=== PATIENT | female | born 1995 | race Caucasian/White ===

== ENCOUNTER 2017-11-02 09:49 | Day surgery (SDC) | payer OTHER ==
[2017-10-28 12:30] VITALS: BMI 29.2
[~2017-11-02 09:49] MED LIST: LIDOCAINE 1% 20 ML VIAL (10MG/ML) FOR IV START INTRADERMA PRN
[2017-11-02 10:04] VITALS: TEMP 97.5
[2017-11-02] MEDS ORDERED: ONDANSETRON 4 MG/2 ML VIAL IVP STA (10:25)
[2017-11-02] MEDS: LACTATED RINGERS 1,000 ML IV SCH ×2 (10:26→10:52)
[2017-11-02] MEDS ORDERED: PROPOFOL 10 MG/ML 20 ML VIAL IV ONE (10:55)
[2017-11-02] MEDS ORDERED: LIDOCAINE 1% INJ 10MG/ML (20 ML MDV) ONE (10:55)
--- NOTE | 2017-11-02 10:57 | P.GSHP ---
History of Present Illness H&P Date: 11/02/17 Chief Complaint: GERD, GI bleed Is a 22-year-old female referred from Dr. Schmidt patient safer EGD colonoscopy. She's had issues with GERD and GI bleed. Past Medical History Past Medical History: Fibromyalgia, GERD/Reflux, Neurologic Disorder Additional Past Medical History / Comment(s): MIGRAINES, IBS, HIATAL HERNIA., SCLEROSIS RT SI JOINT History of Any Multi-Drug Resistant Organisms: None Reported Past Surgical History: Section, Cholecystectomy Additional Past Surgical History / Comment(s): COLONOSCOPY, EGD Past Anesthesia/Blood Transfusion Reactions: Motion Sickness Smoking Status: Current every day smoker - Past Family History Mother Family Medical History: Deep Vein Thrombosis (DVT) Medications and Allergies Home Medications Medication Instructions Recorded Confirmed Type DULoxetine HCL [Cymbalta] 60 mg PO DAILY 10/28/17 11/02/17 History Ibuprofen [Motrin] 800 mg PO DAILY PRN 10/28/17 11/02/17 History Omeprazole [PriLOSEC] 20 mg PO DAILY PRN 10/28/17 11/02/17 History Allergies Allergy/AdvReac Type Severity Reaction Status Date / Time Penicillins Allergy Abdominal Verified 11/02/17 10:04 Pain, Diarrhea, Nausea Surgical - Exam Vital Signs Temp Pulse Resp BP Pulse Ox 97.5 F L 78 16 129/82 98 11/02/17 10:02 11/02/17 10:02 11/02/17 10:02 11/02/17 10:02 11/02/17 10:02 - General well developed, no distress - Eyes PERRL - ENT normal pinna - Neck no masses - Respiratory normal expansion - Cardiovascular Rhythm: regular - Abdomen Abdomen: soft, non tender Assessment and Plan Assessment: GERD, GI bleed. We'll perform EGD and colonoscopy.
--- NOTE | 2017-11-02 11:19 | P.OP ---
Date of Procedure: 11/02/17 Preoperative Diagnosis: GERD GI bleed Postoperative Diagnosis: Mild antral gastritis Minimal hiatal hernia Mild esophagitis Normal colonoscopy Procedure(s) Performed: EGD Colonoscopy Anesthesia: MAC Surgeon: Faheem Murphy Pathology: other (Antrum, esophagus) Condition: stable Disposition: PACU Description of Procedure: The patient's placed on the endoscopy table in the lateral position. She received IV sedation. The gastroscope some placed oropharynx and passed in the esophagus and into the stomach. The scope was then placed through the pylorus. The first and second portion of the duodenum appeared normal. Scope was then brought back the antrum and this was mildly inflamed. A biopsies was performed. The scope was then retroflexed and the remainder of the stomach appeared normal. There was a minimal hiatal hernia. The GE junction was at 39 cm. The distal esophagus appeared minimally inflamed a biopsies performed. The proximal esophagus appeared normal. Scope was withdrawn for patient. Next digital rectal exam was performed which revealed a few internal hemorrhoids. The flexible colonoscope was then placed patient anus passed throughout the entire colon. The ileocecal valve was visualized. The cecum, ascending and transverse colon appeared normal. The scope was then brought back and the descending and sigmoid colon was normal. Scope was then brought back the rectum and this was normal. The scope was withdrawn from the patient. There was no blood seen in the colon.
[2017-11-02 11:49] VITALS: BP 111/72; PULSE 65; RESP 18
== END 2017-11-02 12:00 | disposition home or self-care (01) ==
LOC: ORWHC2ENDO 09:49
PROVIDERS: ATTEND Surgery
DX: K29.50 Unspecified chronic gastritis without bleeding (principal); K21.0 Gastro-esophageal reflux disease with esophagitis; K44.9 Diaphragmatic hernia without obstruction or gangrene; K58.9 Irritable bowel syndrome, unspecified; F17.210 Nicotine dependence, cigarettes, uncomplicated; F41.9 Anxiety disorder, unspecified; F32.9 Major depressive disorder, single episode, unspecified; M79.7 Fibromyalgia; Z79.899 Other long term (current) drug therapy; Z88.0 Allergy status to penicillin
CPT/HCPCS: 81025; 88305; 88342; 45378; 43239; J2405; J2001; J2704

== ENCOUNTER 2018-03-20 03:15 | Emergency (ER) | payer OTHER ==
[2018-03-20 03:21] VITALS: BP 130/91; PULSE 91; RESP 20; TEMP 98.2
[2018-03-20] MEDS ORDERED: LORazepam 1 MG TAB PO STA (04:02)
--- NOTE | 2018-03-20 04:05 | ED ---
Arrhythmia/Palpitations HPI - General Chief Complaint: Arrhythmia/Palpitations Stated Complaint: palpitations Time Seen by Provider: 03/20/18 03:49 Source: patient, RN notes reviewed Mode of arrival: ambulatory Limitations: no limitations - History of Present Illness Initial Comments: This is a 22-year-old female who presents to the emergency department with chief complaint of palpitations. Patient states that for the past one day she has been experiencing intermittent episodes of repeated "hard" heartbeats. Patient states that when this happens she feels lightheaded like she is going to pass out. She states that these heart palpitations are frequent, occurring multiple times per hour. Patient states that 7 weeks ago she was started on Lamictal for bipolar disorder. She states that palpitations is a side effect of this medication, however has not experienced this in the past. Patient also states she has a history of anxiety, but does not take anything for anxiety and states that with previous episodes of anxiety she has not had palpitations. Patient denies any fevers or chills, chest pain or shortness of breath, abdominal pain, vomiting, diarrhea or constipation. She does admit to associated nausea during her episodes. - Related Data Home Medications Medication Instructions Recorded Confirmed DULoxetine HCL [Cymbalta] 60 mg PO DAILY 10/28/17 03/20/18 Ibuprofen [Motrin] 800 mg PO DAILY PRN 10/28/17 03/20/18 lamoTRIgine [LaMICtal] 100 mg PO DAILY 03/20/18 03/20/18 Allergies Allergy/AdvReac Type Severity Reaction Status Date / Time Penicillins Allergy Abdominal Verified 03/20/18 03:21 Pain, Diarrhea, Nausea Review of Systems ROS Statement: Those systems with pertinent positive or pertinent negative responses have been documented in the HPI. ROS Other: All systems not noted in ROS Statement are negative. Past Medical History Past Medical History: Fibromyalgia, GERD/Reflux, Neurologic Disorder Additional Past Medical History / Comment(s): MIGRAINES, IBS, HIATAL HERNIA., SCLEROSIS RT SI JOINT History of Any Multi-Drug Resistant Organisms: None Reported Past Surgical History: Section, Cholecystectomy Additional Past Surgical History / Comment(s): COLONOSCOPY, EGD Past Anesthesia/Blood Transfusion Reactions: Motion Sickness Past Psychological History: Anxiety, Bipolar, Depression Smoking Status: Current every day smoker Past Alcohol Use History: None Reported Past Drug Use History: None Reported - Past Family History Mother Family Medical History: Deep Vein Thrombosis (DVT) General Exam - General Exam Comments Initial Comments: General: Awake and alert, well-developed; in no apparent distress. HEENT: Head atraumatic, normocephalic. Pupils are equal, round and reactive to light. Extraocular movements intact. Oropharynx moist without erythema. Neck: Supple. Normal ROM. Cardiovascular: Regular rate and rhythm. No murmurs, rubs or gallops. Chest symmetrical. Respiratory: Lungs clear to auscultation bilaterally. No wheezes, rales or rhonchi. Normal respiratory effort with no use of accessory muscles. Abdomen: Soft, non-tender, non-distended. No rigidity, rebound or guarding. Normal bowel sounds in all 4 quadrants. Musculoskeletal: Normal ROM, no tenderness bilateral upper and lower extremities. Ambulating normally. Skin: Omega, warm and dry without rashes or lesions. Neurological: Alert and oriented x3. CN II-XII grossly intact. Speech is fluent and answers are appropriate. No focal neuro deficits. Limitations: no limitations Course Vital Signs 03/20/18 03:17 Temperature 98.2 F Pulse Rate 91 Respiratory 20 Rate Blood Pressure 130/91 O2 Sat by Pulse 100 Oximetry EKG Findings - EKG Comments: EKG Findings:: 3:33:45. Normal sinus rhythm. Ventricular rate 82 bpm, ND interval 130, QRS duration 96, QT/QTC 374/436. Medical Decision Making - Medical Decision Making This is a 22-year-old female who presented to the emergency department for evaluation of heart palpitations 1 day. Patient described palpitations as intermittent with rapid, repeated "hard" heartbeats with associated nausea and lightheadedness. EKG revealed normal sinus rhythm. Chest x-ray was negative for any acute abnormalities. CBC, CMP, coags were unremarkable. D-dimer and troponin were negative. Urine drug screen was negative for any illicit drug use. Patient's vital signs are stable and she is in no acute distress. I'm suspicious that patient's recently prescribed Lamictal may be causing her palpitations as a side effect. Recommended following up with her psychiatrist and family care physician. Patient will be discharged home at this time. She is in agreement and voices understanding. All questions answered. - Lab Data Result diagrams: 03/20/18 04:10 03/20/18 04:10 Lab Results 03/20/18 03/20/18 03/20/18 Range/Units 04:10 04:10 04:10 WBC 9.1 (3.8-10.6) k/uL RBC 4.55 (3.80-5.40) m/uL Hgb 12.8 (11.4-16.0) gm/dL Hct 39.2 (34.0-46.0) % MCV 86.1 (80.0-100.0) fL MCH 28.2 (25.0-35.0) pg MCHC 32.8 (31.0-37.0) g/dL RDW 14.0 (11.5-15.5) % Plt Count 297 (150-450) k/uL Neutrophils % 59 % Lymphocytes % 30 % Monocytes % 5 % Eosinophils % 4 % Basophils % 0 % Neutrophils # 5.4 (1.3-7.7) k/uL Lymphocytes # 2.7 (1.0-4.8) k/uL Monocytes # 0.5 (0-1.0) k/uL Eosinophils # 0.4 (0-0.7) k/uL Basophils # 0.0 (0-0.2) k/uL PT 9.7 (9.0-12.0) sec INR 1.0 (<1.2) APTT 24.8 (22.0-30.0) sec D-Dimer 0.36 (<0.60) mg/L FEU Sodium 140 (137-145) mmol/L Potassium 4.4 (3.5-5.1) mmol/L Chloride 103 (98-107) mmol/L Carbon Dioxide 25 (22-30) mmol/L Anion Gap 12 mmol/L BUN 13 (7-17) mg/dL Creatinine 0.60 (0.52-1.04) mg/dL Est GFR (CKD-EPI)AfAm >90 (>60 ml/min/1.73 sqM) Est GFR (CKD-EPI)NonAf >90 (>60 ml/min/1.73 sqM) Glucose 90 (74-99) mg/dL Calcium 9.7 (8.4-10.2) mg/dL Magnesium 1.8 (1.6-2.3) mg/dL Total Bilirubin <0.1 L (0.2-1.3) mg/dL AST 22 (14-36) U/L ALT 33 (9-52) U/L Alkaline Phosphatase 58 (38-126) U/L Troponin I (0.000-0.034) ng/mL Total Protein 6.6 (6.3-8.2) g/dL Albumin 4.0 (3.5-5.0) g/dL Urine Opiates Screen (NotDetected) Ur Oxycodone Screen (NotDetected) Urine Methadone Screen (NotDetected) Ur Propoxyphene Screen (NotDetected) Ur Barbiturates Screen (NotDetected) U Tricyclic Antidepress (NotDetected) Ur Phencyclidine Scrn (NotDetected) Ur Amphetamines Screen (NotDetected) U Methamphetamines Scrn (NotDetected) U Benzodiazepines Scrn (NotDetected) Urine Cocaine Screen (NotDetected) U Marijuana (THC) Screen (NotDetected) 03/20/18 03/20/18 Range/Units 04:10 04:10 WBC (3.8-10.6) k/uL RBC (3.80-5.40) m/uL Hgb (11.4-16.0) gm/dL Hct (34.0-46.0) % MCV (80.0-100.0) fL MCH (25.0-35.0) pg MCHC (31.0-37.0) g/dL RDW (11.5-15.5) % Plt Count (150-450) k/uL Neutrophils % % Lymphocytes % % Monocytes % % Eosinophils % % Basophils % % Neutrophils # (1.3-7.7) k/uL Lymphocytes # (1.0-4.8) k/uL Monocytes # (0-1.0) k/uL Eosinophils # (0-0.7) k/uL Basophils # (0-0.2) k/uL PT (9.0-12.0) sec INR (<1.2) APTT (22.0-30.0) sec D-Dimer (<0.60) mg/L FEU Sodium (137-145) mmol/L Potassium (3.5-5.1) mmol/L Chloride (98-107) mmol/L Carbon Dioxide (22-30) mmol/L Anion Gap mmol/L BUN (7-17) mg/dL Creatinine (0.52-1.04) mg/dL Est GFR (CKD-EPI)AfAm (>60 ml/min/1.73 sqM) Est GFR (CKD-EPI)NonAf (>60 ml/min/1.73 sqM) Glucose (74-99) mg/dL Calcium (8.4-10.2) mg/dL Magnesium (1.6-2.3) mg/dL Total Bilirubin (0.2-1.3) mg/dL AST (14-36) U/L ALT (9-52) U/L Alkaline Phosphatase (38-126) U/L Troponin I <0.012 (0.000-0.034) ng/mL Total Protein (6.3-8.2) g/dL Albumin (3.5-5.0) g/dL Urine Opiates Screen Not Detected (NotDetected) Ur Oxycodone Screen Not Detected (NotDetected) Urine Methadone Screen Not Detected (NotDetected) Ur Propoxyphene Screen Not Detected (NotDetected) Ur Barbiturates Screen Not Detected (NotDetected) U Tricyclic Antidepress Not Detected (NotDetected) Ur Phencyclidine Scrn Not Detected (NotDetected) Ur Amphetamines Screen Not Detected (NotDetected) U Methamphetamines Scrn Not Detected (NotDetected) U Benzodiazepines Scrn Not Detected (NotDetected) Urine Cocaine Screen Not Detected (NotDetected) U Marijuana (THC) Screen Not Detected (NotDetected) - Radiology Data Radiology results: report reviewed, image reviewed Chest x-ray impression: Normal chest x-ray. As read by Dr. Louis Disposition Clinical Impression: Palpitations Disposition: HOME SELF-CARE Condition: Good Instructions: Palpitations (ED) Additional Instructions: Please follow-up with your psychiatrist to discuss possible side effects of Lamictal. Please follow up with primary care provider within 1-2 days. Return to emergency department if symptoms should worsen or any concerns arise. Is patient prescribed a controlled substance at d/c from ED?: No Referrals: Lincoln Schmidt DO [Primary Care Provider] - 1-2 days Time of Disposition: 04:56
[2018-03-20 04:24] LABS: Basophils % (A) 0 %; Eosinophils # (A) 0.4 k/uL (0-0.7); Eosinophils % (A) 4 %; HCT 39.2 % (34.0-46.0); HGB 12.8 gm/dL (11.4-16.0); Lymphocytes # (A) 2.7 k/uL (1.0-4.8); Lymphocytes % (A) 30 %; MCH 28.2 pg (25.0-35.0); MCHC 32.8 g/dL (31.0-37.0); MCV 86.1 fL (80.0-100.0); Mean Platelet Volume 6.6; Monocytes # (A) 0.5 k/uL (0-1.0); Monocytes % (A) 5 %; Neutrophils # (A) 5.4 k/uL (1.3-7.7); Neutrophils % (A) 59 %; Platelet Count 297 k/uL (150-450); RBC 4.55 m/uL (3.80-5.40); WBC 9.1 k/uL (3.8-10.6)
--- NOTE | 2018-03-20 04:31 | XR ---
EXAM: XR Chest, 2 Views CLINICAL HISTORY: ITS.REASON XR Reason: palpitations TECHNIQUE: Frontal and lateral views of the chest. COMPARISON: No relevant prior studies available. FINDINGS: Lungs: Unremarkable. No consolidation. Pleural space: Unremarkable. No pneumothorax. Heart: Unremarkable. No cardiomegaly. Mediastinum: Unremarkable. Bones/joints: Unremarkable. IMPRESSION: Normal chest x-rays.
[2018-03-20 04:32] LABS: ALT 33 U/L (9-52); AST 22 U/L (14-36); Alkaline Phosphatase 58 U/L (38-126); Anion Gap 12 mmol/L; Blood Urea Nitrogen 13 mg/dL (7-17); Calcium 9.7 mg/dL (8.4-10.2); Carbon Dioxide 25 mmol/L (22-30); Chloride 103 mmol/L (98-107); Glucose 90 mg/dL (74-99); Magnesium 1.8 mg/dL (1.6-2.3); Potassium 4.4 mmol/L (3.5-5.1); Sodium 140 mmol/L (137-145); Total Bilirubin <0.1 mg/dL (0.2-1.3); Total Protein 6.6 g/dL (6.3-8.2)
[2018-03-20 04:40] LABS: D-Dimer 0.36 mg/L FEU (<0.60); Partial Thromboplastin Time 24.8 sec (22.0-30.0); Prothrombin Time 9.7 sec (9.0-12.0)
[2018-03-20 04:48] LABS: Amphetamine Screen,Urine Not Detected (NotDetected); Barbiturate Screen,Urine Not Detected (NotDetected); Benzodiazepines Screen,Urine Not Detected (NotDetected); Cocaine Screen,Urine Not Detected (NotDetected); Methadone Screen, Urine Not Detected (NotDetected); Opiate Screen,Urine Not Detected (NotDetected); Oxycodone Screen, Urine Not Detected (NotDetected); Phencyclidine Screen,Urine Not Detected (NotDetected); Tricyclic Antidepressant,Urine Not Detected (NotDetected); Urn Cannabinoid Scrn Not Detected (NotDetected)
== END 2018-03-20 05:11 | disposition home or self-care (01) ==
LOC: EC 03:15
DX: R00.2 Palpitations (principal); R42 Dizziness and giddiness; R11.0 Nausea; F31.9 Bipolar disorder, unspecified; F41.9 Anxiety disorder, unspecified; F17.200 Nicotine dependence, unspecified, uncomplicated; Z79.899 Other long term (current) drug therapy; Z88.0 Allergy status to penicillin
CPT/HCPCS: 36415; 71046; 80053; 80306; 83735; 84443; 84484; 85025; 85379; 85610; 85730; 93005; 99285

== ENCOUNTER 2018-05-11 11:56 | Day surgery (SDC) | payer OTHER ==
[~2018-05-11 11:56] MED LIST changes: +LACTATED RINGERS 1,000 ML IV SCH
[2018-05-11 12:23] VITALS: TEMP 98.3
[2018-05-11] MEDS ORDERED: PROPOFOL 10 MG/ML 20 ML VIAL IV ONE (13:15)
--- NOTE | 2018-05-11 13:21 | P.GSHP ---
History of Present Illness H&P Date: 05/11/18 Chief Complaint: GI bleed This is a 22-year-old female who presents today for colonoscopy. She's had issues with rectal bleeding. Past Medical History Past Medical History: Fibromyalgia, GERD/Reflux, Neurologic Disorder Additional Past Medical History / Comment(s): ABD PAIN, MIGRAINES, IBS, HIATAL HERNIA, SCLEROSIS RT SI JOINT, HX HEMMOROIDS, History of Any Multi-Drug Resistant Organisms: None Reported Past Surgical History: Section, Cholecystectomy Additional Past Surgical History / Comment(s): COLONOSCOPY, EGD Past Anesthesia/Blood Transfusion Reactions: Motion Sickness Smoking Status: Current every day smoker - Past Family History Mother Family Medical History: Deep Vein Thrombosis (DVT) Medications and Allergies Home Medications Medication Instructions Recorded Confirmed Type DULoxetine HCL [Cymbalta] 60 mg PO BID 10/28/17 05/11/18 History Ibuprofen [Motrin] 800 mg PO DAILY PRN 10/28/17 05/11/18 History lamoTRIgine [LaMICtal] 100 mg PO DAILY 03/20/18 05/11/18 History Allergies Allergy/AdvReac Type Severity Reaction Status Date / Time Penicillins Allergy Abdominal Verified 05/11/18 12:06 Pain, Diarrhea, Nausea Surgical - Exam Vital Signs Temp Pulse Resp BP Pulse Ox 98.3 F 80 14 125/78 97 05/11/18 12:21 05/11/18 12:21 05/11/18 12:21 05/11/18 12:21 05/11/18 12:21 - General well developed, no distress - Eyes PERRL - ENT normal pinna - Neck no masses - Respiratory normal expansion - Cardiovascular Rhythm: regular - Abdomen Abdomen: soft, non tender Assessment and Plan Assessment: GI bleed. We'll perform colonoscopy.
--- NOTE | 2018-05-11 13:34 | P.OP ---
Date of Procedure: 05/11/18 Preoperative Diagnosis: GI bleed Postoperative Diagnosis: Mild internal hemorrhoids Procedure(s) Performed: Colonoscopy Anesthesia: MAC Surgeon: Faheem Murphy Pathology: none sent Condition: stable Disposition: PACU Description of Procedure: Patient's placed on the endoscopy table in the lateral position. She received IV sedation. Digital rectal exam is performed which revealed a few mild internal hemorrhoids. Flexible colonoscope was then placed patient anus passed rotator colon. Ileocecal valve sutures. The cecum, ascending and transverse colon appeared normal. The descending and sigmoid colon appeared normal. Scope was then brought back into the rectum and this appeared normal. Scope was withdrawn through the anus there is mild internal hemorrhoids. The scope was withdrawn for patient.
[2018-05-11 13:38] VITALS: RESP 16
[2018-05-11 14:01] VITALS: BP 106/64; PULSE 76
--- NOTE | 2018-05-13 11:28 | CDI ---
Outpatient Documentation Clarification Form Date: 05/13/18 CDS/Industrial Custodian Name: Bre Omer Phone: If any questions, call [facility] [employer] at [phone] Patient Name: Errol Xavier Admit Date: 05/11/18 Discharge Date: 05/11/18 ATTENTION: The [facility] Coding Staff appreciate your assistance in clarifying documentation. Please respond to the clarification below the line at the bottom and electronically sign. The [facility] Coding staff will review the response and follow-up if needed. Please note: Queries are made part of the Legal Health Record. If you have any questions, please contact the Online Retailer. Dear Dr. Murphy, What is the source of the GI bleed? Multiple coding resources, that we are required to follow, state that the physician should identify a source and the tank filler may not assume. Thank you for your kind consideration. MTDD
== END 2018-05-11 14:13 | disposition home or self-care (01) ==
LOC: ORWHC2ENDO 11:56
PROVIDERS: ATTEND Surgery
DX: K92.2 Gastrointestinal hemorrhage, unspecified (principal); K64.8 Other hemorrhoids; M79.7 Fibromyalgia; K21.9 Gastro-esophageal reflux disease without esophagitis; G43.909 Migraine, unspecified, not intractable, without status migrainosus; K58.9 Irritable bowel syndrome, unspecified; F17.200 Nicotine dependence, unspecified, uncomplicated; Z90.49 Acquired absence of other specified parts of digestive tract; Z79.899 Other long term (current) drug therapy; Z88.0 Allergy status to penicillin
CPT/HCPCS: 81025; 45378; J2704

== ENCOUNTER 2021-08-28 10:01 | Day surgery (SDC) | payer OTHER ==
[2021-08-27 08:48] VITALS: BMI 39.1
[~2021-08-28 10:01] MED LIST changes: -LACTATED RINGERS 1,000 ML IV SCH; +LIDOCAINE 1% (10MG/ML) FOR IV START INTRADERMA PRN; -LIDOCAINE 1% 20 ML VIAL (10MG/ML) FOR IV START INTRADERMA PRN
[2021-08-28 11:29] VITALS: TEMP 98.2
[2021-08-28] MEDS ORDERED: LACTATED RINGERS 1,000 ML IV ONE (11:29)
[2021-08-28] MEDS ORDERED: LIDOCAINE 1% INJ 10MG/ML (20 ML MDV) ONE (13:12)
[2021-08-28] MEDS ORDERED: PROPOFOL 10 MG/ML 20 ML VIAL IV ONE (13:12)
--- NOTE | 2021-08-28 13:18 | P.GSHP ---
History of Present Illness H&P Date: 08/28/21 Chief Complaint: GERD, GI bleed Is a 25-year-old female who presents today for EGD and colonoscopy. She has issues with GERD and GI bleed. Past Medical History Past Medical History: Fibromyalgia, GERD/Reflux, Neurologic Disorder Additional Past Medical History / Comment(s): ABD PAIN, MIGRAINES, IBS, HIATAL HERNIA, SCLEROSIS RT SI JOINT, HX HEMORRHOIDS, ON FLAGYL FOR BACTERIAL VAGINITIS, FOOD GETTING STUCK, ABD PAIN, BLOATING AND DIARRHEA History of Any Multi-Drug Resistant Organisms: None Reported Past Surgical History: Section, Cholecystectomy Additional Past Surgical History / Comment(s): COLONOSCOPY, EGD, COLPOSCOPY Past Anesthesia/Blood Transfusion Reactions: Motion Sickness Smoking Status: Former smoker - Past Family History Mother Family Medical History: Deep Vein Thrombosis (DVT) Medications and Allergies Home Medications Medication Instructions Recorded Confirmed Type Venlafaxine HCl [Effexor] 37.5 mg PO DAILY 08/27/21 08/27/21 History metroNIDAZOLE [Flagyl] 500 mg PO BID 08/27/21 08/27/21 History traZODone HCL 150 mg PO HS 08/27/21 08/27/21 History Allergies Allergy/AdvReac Type Severity Reaction Status Date / Time Penicillins Allergy Abdominal Verified 08/28/21 11:19 Pain, Diarrhea, Nausea Surgical - Exam Vital Signs Temp Pulse Resp BP Pulse Ox 98.2 F 81 16 113/59 97 08/28/21 11:26 08/28/21 11:26 08/28/21 11:26 08/28/21 11:26 08/28/21 11:26 - General well developed, well nourished, no distress - Eyes PERRL - ENT normal pinna - Neck no masses - Respiratory normal expansion - Cardiovascular Rhythm: regular - Abdomen Abdomen: soft, non tender Assessment and Plan Assessment: GERD, GI bleed. We'll perform EGD and colonoscopy
--- NOTE | 2021-08-28 13:36 | P.OP ---
Date of Procedure: 08/28/21 Preoperative Diagnosis: GERD GI bleed Postoperative Diagnosis: Antral gastritis Normal colon Procedure(s) Performed: EGD Colonoscopy Anesthesia: MAC Surgeon: Faheem Murphy Pathology: other (Antrum) Condition: stable Disposition: PACU Description of Procedure: The patient's placed on the endoscopy table in the lateral position. She received IV sedation. The gastroscope placed oropharynx passed in the esophagus into the stomach. Scope was then placed through the pylorus. The first and second portion of the duodenum appeared normal. Scope was then brought back and the antrum this appeared mildly inflamed. A biopsies performed. The scope was unretroflexed and remainder of the stomach appeared normal. The GE junction was at 47 is. The distal esophagus. Minimal inflamed. This was biopsied. The proximal esophagus appeared normal. Scope was withdrawn for patient. Next digital rectal exam was performed which revealed no ebonized. The flexible colonoscope was then placed patient anus passed throughout the entire colon. The ileocecal valve was visualized. The cecum, ascending and transverse colon appeared normal. The descending and sigmoid colon appeared normal. Scope was then brought back the rectum this appeared normal. Scope withdrawn for patient. There is no evidence of any GI bleed. It is thought the patient may have had some anal trauma which caused her GI bleed.
[2021-08-28 13:58] VITALS: RESP 16
[2021-08-28 14:19] VITALS: BP 121/80; PULSE 79
== END 2021-08-28 14:36 | disposition home or self-care (01) ==
LOC: ORWHC2ENDO 10:01
PROVIDERS: ATTEND Surgery
DX: K29.50 Unspecified chronic gastritis without bleeding (principal); K21.9 Gastro-esophageal reflux disease without esophagitis; K92.2 Gastrointestinal hemorrhage, unspecified; M79.7 Fibromyalgia; R29.90 Unspecified symptoms and signs involving the nervous system; K58.9 Irritable bowel syndrome, unspecified; N76.0 Acute vaginitis; Z98.891 History of uterine scar from previous surgery; Z90.49 Acquired absence of other specified parts of digestive tract; Z98.890 Other specified postprocedural states; Z87.891 Personal history of nicotine dependence; Z82.49 Family history of ischemic heart disease and other diseases of the circulatory system; Z79.899 Other long term (current) drug therapy; Z88.0 Allergy status to penicillin
CPT/HCPCS: 81025; 88305; 45378; 43239; J2001; J2704

== ENCOUNTER → 2022-03-16 | Outpatient (CLI) | payer OTHER ==
--- NOTE | 2022-03-16 13:02 | FL ---
EXAMINATION TYPE: FL UGI air w esophagus DATE OF EXAM: 03/16/2022 CLINICAL INDICATION: 26-year-old female K21.0, GERD with esophagitis. COMPARISON: None Total Fluoroscopy Time: 2 minutes 52 images obtained. FINDINGS: The swallowing mechanism is normal and hypopharyngeal anatomy is preserved. The cervical and thoracic portions have a normal course and caliber and normal motility. The mucosa is normal and no persistent filling defect is encountered. There is a small sliding hiatal hernia. When the patient is in the right decubitus position, multiple episodes of severe gastroesophageal reflux up to the thoracic inlet are easily elicited with Valsalv a maneuver. The stomach and duodenum are free of any persistent filling defect and demonstrate a normal mucosal p attern. IMPRESSION: 1. Small sliding hiatal hernia. 2. When the patient is in the right decubitus position, multiple episodes of severe gastroesophageal reflux up to the thoracic inlet are easily elicited with Valsalva maneuver. 3. Otherwise, unremarkable esophagram and upper GI examination.
== END | disposition home or self-care (01) ==
LOC: RADUSWWP 08:28
PROVIDERS: ATTEND Surgery
DX: K44.9 Diaphragmatic hernia without obstruction or gangrene (principal); K21.00 Gastro-esophageal reflux disease with esophagitis, without bleeding
CPT/HCPCS: 74246

== ENCOUNTER → 2022-03-21 | Outpatient (CLI) | payer OTHER ==
[2022-03-21 16:09] LABS: Basophils # (A) 0.03 X 10*3/uL (0.00-0.10); Basophils % (A) 0.4 %; Eosinophils # (A) 0.19 X 10*3/uL (0.04-0.35); Eosinophils % (A) 2.6 %; HCT 41.9 % (37.2-46.3); Immature Grans, Automated 0.1 %; Lymphocytes # (A) 2.26 X 10*3/uL (0.90-5.00); Lymphocytes % (A) 30.7 %; MCH 26.9 pg (27.0-32.0); MCV 86.7 fL (80.0-97.0); Mean Platelet Volume 10.8 fL (9.5-12.2); Monocytes # (A) 0.49 X 10*3/uL (0.20-1.00); Monocytes % (A) 6.7 %; NRBC Per 100 WBC 0 /100 WBCS (0.0-0.0); Neutrophils # (A) 4.37 X 10*3/uL (1.80-7.70); Neutrophils % (A) 59.5 %; Platelet Count 336 X 10*3/uL (140-440); RBC 4.83 X 10*6/uL (4.10-5.20); RDW 13.9 % (11.5-14.5); WBC 7.35 X 10*3/uL (4.50-10.00)
== END | disposition home or self-care (01) ==
LOC: LABPAT 11:41
PROVIDERS: ATTEND Surgery
DX: Z01.812 Encounter for preprocedural laboratory examination (principal); K21.00 Gastro-esophageal reflux disease with esophagitis, without bleeding
CPT/HCPCS: 85025

== ENCOUNTER 2022-03-24 07:21 | Observation (INO) | payer OTHER ==
[~2022-03-24 07:21] MED LIST changes: +ACETAMINOPHEN TAB 500 MG TAB PO PRN; +DEXAMETHASONE SOD PHOSPHATE 4 MG/ML 1 ML VIAL IV ONE; +HEPARIN SODIUM,PORCINE/PF 5,000 UNIT/0.5 ML SYRINGE SQ PRN; +MIDAZOLAM 2 MG/2 ML VIAL IV PRN; +ONDANSETRON 4 MG/2 ML VIAL IVP ONE
--- NOTE | 2022-03-24 08:36 | P.GSHP ---
History of Present Illness H&P Date: 03/24/22 Chief Complaint: GERD This is a 26-year-old female who has a long-standing history of GERD.The patient has had long-standing problems with reflux esophagitis. The patient underwent recent EGD is found have evidence of esophagitis. Patient has been well in formed on the procedure of laparoscopic Juan fundoplication. The patient is aware the risk of the conversion to the open procedure, risk of injury to the stomach, liver and spleen. The patient is also a risk of recurrent GERD and dysphagia symptoms. The patient understands there is a postoperative diet of full liquids for 2 weeks after surgery. Past Medical History Past Medical History: Fibromyalgia, GERD/Reflux, Neurologic Disorder Additional Past Medical History / Comment(s): ABD PAIN, occular MIGRAINES, IBS, HIATAL HERNIA, SCLEROSIS RT SI JOINT, HX HEMORRHOIDS, hx. 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 right hip for labral tear, bone spurs Past Anesthesia/Blood Transfusion Reactions: Motion Sickness Additional Past Anesthesia/Blood Transfusion Reaction / Comment(s): has woke up during surgery before & wasn't able to communicate & tell people she was awake, very anxious about this Smoking Status: Current every day smoker - Past Family History Mother Family Medical History: Deep Vein Thrombosis (DVT) Medications and Allergies Home Medications Medication Instructions Recorded Confirmed Type Bismuth Subsalicylate 262 mg PO DIRECTED PRN 03/20/22 03/20/22 History [Pepto-Bismol] Phentermine HCl [Adipex-P] 37.5 mg PO DAILY 03/20/22 03/20/22 History Allergies Allergy/AdvReac Type Severity Reaction Status Date / Time Penicillins AdvReac Abdominal Verified 03/24/22 07:54 Pain, Diarrhea, Nausea tuberculin,PPD,multi-puncture AdvReac rash,excessive Verified 03/24/22 07:54 swelling Surgical - Exam Vital Signs Temp Pulse Resp BP Pulse Ox 97.2 F L 90 16 127/80 96 03/24/22 07:59 03/24/22 07:59 03/24/22 07:59 03/24/22 07:59 03/24/22 07:59 - General well developed, well nourished, no distress - Eyes PERRL - ENT normal pinna - Neck no masses - Respiratory normal expansion - Cardiovascular Rhythm: regular - Abdomen Abdomen: soft, non tender Assessment and Plan Assessment: GERD. We'll perform laparoscopic Juan fundal plication.
[2022-03-24] MEDS: LACTATED RINGERS 1,000 ML IV SCH (08:41)
[2022-03-24] MEDS ORDERED: ROCURONIUM 10 MG/ML (5 ML VIAL) IV ONE (08:48)
[2022-03-24] MEDS ORDERED: KETAMINE 10 MG/ML 20 ML VIAL ONE (08:48)
[2022-03-24] MEDS ORDERED: fentaNYL (PF) 50 MCG/ML 2 ML AMP ONE (08:48)
[2022-03-24] MEDS ORDERED: GLYCOPYRROLATE 0.2 MG/ML 2 ML VIAL ONE (08:48)
[2022-03-24] MEDS ORDERED: LIDOCAINE 2% INJ 20 MG/ML (2 ML VIAL) ONE (08:48)
[2022-03-24] MEDS ORDERED: SUCCINYLCHOLINE CHLORIDE 100 MG/5 ML SYR IV ONE (08:48)
[2022-03-24] MEDS ORDERED: PROPOFOL 10 MG/ML 20 ML VIAL IV ONE (08:48)
[2022-03-24] MEDS ORDERED: NEOSTIGMINE 1 MG/ML 10 ML VIAL ONE (08:48)
[2022-03-24] MEDS ORDERED: HYDROmorphone (PF) 1 MG/ML ONE (08:48)
[2022-03-24] MEDS ORDERED: MIDAZOLAM 2 MG/2 ML VIAL ONE (08:48)
[2022-03-24] MEDS ORDERED: LIDOCAINE 4% LTA KIT (4 ML) TOPICAL ONE (08:48)
[2022-03-24] MEDS ORDERED: KETOROLAC 15 MG/ML 1 ML VIAL ONE (08:48)
[2022-03-24] MEDS ORDERED: BUPIVACAIN-EPI 0.25%-1:200,000 30 ML VIAL SQ ONE ×2 (08:50→09:20)
--- NOTE | 2022-03-24 09:56 | P.OP ---
Date of Procedure: 03/24/22 Preoperative Diagnosis: GERD Postoperative Diagnosis: GERD Procedure(s) Performed: Laparoscopic Juan fundoplication Anesthesia: JAQUI Surgeon: Faheem Murphy Estimated Blood Loss (ml): 5 Pathology: none sent Condition: stable Disposition: PACU Description of Procedure: The patient was placed on the operating table in the supine position. The patient received general anesthesia. And was placed in dorsal lithotomy position. The patient was prepped and draped in the usual sterile fashion. The skin incision sites were anesthetized with 1% local Xylocaine. The skin was incised in the left periumbilical area and then using a blade less 5 mm trocar under direct visualization panel cavity was entered. After adequate insufflation the laparoscope was then placed into the peritoneal cavity. Next a 5 mm trochars placed in the right epigastric position. Another 5 millimeter trocar the right lateral position. Another 5 millimeter trocar in the left lateral position a 5 mm trocar is placed in the left epigastric position. And then the initial 5 mm trocar was exchanged for a 10 mm trocar. The left lateral lobe liver was retracted. The hernia was seen. The crural defect was then dissected using the Harmonic scissors device. A 360 crural dissection was per formed the esophagus stomach was reduced back into the peritoneal Cavity. The crural defect was then closed using 2-0 Ethibond suture. Next the fundus of the stomach was mobilized using the Kiel scissors device. and then a 58-[place] bougie dilator was placed oropharynx passed into the esophagus and stomach the fundal plication wrap was then performed by grasping the fundus posteriorly and bringing it around the esophagus and stomach fundoplication was then performed using 2-0 Ethibond suture. Care was taken that the fundal location rested over top of the intra-abdominal esophagus. There was no injury seen to the stomach or esophagus. The dilator was then withdrawn. The abdomen was irrigated there is no bleeding seen. The trochars were then withdrawn and then skin incision sites were closed using 3-0 Monocryl suture Steri-Strips are applied. Patient thought procedure well and sent to recovery room in stable condition.
[2022-03-24] MEDS: HYDROmorphone 0.5 MG/0.5 ML SYRINGE IVP PRN ×4 (10:06→11:05)
[2022-03-24] MEDS ORDERED: MEPERIDINE 50 MG/ML SYRINGE IVP ONE (10:40)
[2022-03-24] MEDS: SIMETHICONE 80 MG CHEWABLE PO PRN ×2 (11:31→21:37)
[2022-03-24] MEDS ORDERED: ACETAMINOPHEN TAB 500 MG TAB ONE (14:50)
[2022-03-24] MEDS ORDERED: ACETAMINOPHEN TAB 500 MG TAB PO ONE (14:51)
[2022-03-24] MEDS: HYDROmorphone 1 MG/ML 1 ML SYRINGE IVP PRN ×3 (14:54→23:23)
[2022-03-24] MEDS ORDERED: ACETAMINOPHEN TAB 500 MG TAB PO PRN (15:06)
[2022-03-24] MEDS ORDERED: IBUPROFEN 600 MG TAB PO PRN (15:06)
[2022-03-24] MEDS: METOCLOPRAMIDE 5 MG/ML 2 ML VIAL IVP SCH ×3 (15:57→23:23)
[2022-03-24] MEDS: D5-0.45% NACL WITH KCL 20MEQ/L 1,000 ML IV SCH (16:16)
--- NOTE | 2022-03-24 23:45 | P.CONS ---
History of Present Illness - Reason for Consult Consult date: 03/24/22 Medical management - Chief Complaint Status post Juan fundoplication surgery. - History of Present Illness Patient is a 26-year-old female with a known history of GERD, hiatal hernia, fibromyalgia and history of pseudoseizures and currently everyday smoker was admitted to the hospital for Juan fundoplication surgery. Patient has been having GERD symptoms for the past 9 years. She did have a EGD about 6 months ago and found him gastritis and hiatal hernia. Patient was admitted to the hospital for Juan fundoplication. Patient tolerated the procedure well. Currently lying in the bed. Awake alert and oriented x3. No nausea or vomiting. Patient does have epigastric discomfort. Pain radiating to the left upper chest and to the neck. No headache or dizziness or lightheadedness. No fever no chills.. No cough or sputum production. Review of Systems Constitutional: Patient denies any fever or chills . Generalized weakness. Abdomen: Patient denied any nausea or vomiting or abd. pain Cardiovascular: Patient denies any chest pain or short of breath no palpitations. Respiratory: patient denied any cough is from production. No shortness of breat h Neurologic: Patient denied any numbness or tingling headache. Musculoskeletal: Patient denies any complaints of joint swelling or deformity. Skin: Negative Psychiatric: Negative Endocrine: No heat or cold intolerance. No recent weight gain. Genitourinary: No dysuria or hematuria. All other 14 point ROS negative except the above Past Medical History Past Medical History: Fibromyalgia, GERD/Reflux, Neurologic Disorder Additional Past Medical History / Comment(s): ABD PAIN, occular MIGRAINES, IBS, HIATAL HERNIA, SCLEROSIS RT SI JOINT, HX HEMORRHOIDS, hx. 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 right hip for labral tear, bone spurs Past Anesthesia/Blood Transfusion Reactions: Motion Sickness Additional Past Anesthesia/Blood Transfusion Reaction / Comm: has woke up during surgery before & wasn't able to communicate & tell people she was awake, very anxious about this Past Psychological History: Anxiety, Bipolar, Depression Smoking Status: Former smoker Past Alcohol Use History: Occasional Additional Past Alcohol Use History / Comment(s): STARTED SMOKING AT AGE 16. SMOKES 1 CIGARETTE DAILY, QUIT SMOKING MARCH 2021 but started up again, 1/2ppd Past Drug Use History: None Reported Additional Drug Use History / Comment(s): . - Past Family History Mother Family Medical History: Deep Vein Thrombosis (DVT) Medications and Allergies Home Medications Medication Instructions Recorded Confirmed Type Bismuth Subsalicylate 262 mg PO DIRECTED PRN 03/20/22 03/20/22 History [Pepto-Bismol] Phentermine HCl [Adipex-P] 37.5 mg PO DAILY 03/20/22 03/20/22 History Allergies Allergy/AdvReac Type Severity Reaction Status Date / Time Penicillins AdvReac Abdominal Verified 03/24/22 07:54 Pain, Diarrhea, Nausea tuberculin,PPD,multi-puncture AdvReac rash,excessive Verified 03/24/22 07:54 swelling Physical Exam Vitals: Vital Signs Temp Pulse Resp BP Pulse Ox 03/24/22 19:25 86 16 03/24/22 18:59 98.4 F 84 18 125/76 98 03/24/22 15:48 97.9 F 86 16 106/67 97 03/24/22 15:15 79 18 117/57 97 03/24/22 14:33 93 18 116/76 96 03/24/22 13:49 99 16 114/65 96 03/24/22 13:07 91 16 120/64 96 03/24/22 12:45 102 H 16 129/60 96 03/24/22 12:12 84 16 110/59 96 03/24/22 11:39 96 16 113/70 98 03/24/22 11:24 78 20 108/54 98 03/24/22 11:09 82 20 134/80 98 03/24/22 10:54 89 20 115/64 98 03/24/22 10:39 65 16 122/72 98 03/24/22 10:24 71 18 135/68 99 03/24/22 10:09 78 20 139/73 99 03/24/22 09:54 95 18 143/87 99 03/24/22 07:59 97.2 F L 90 16 127/80 96 Intake and Output 03/24/22 03/24/22 03/25/22 14:59 22:59 06:59 Intake Total 1225 Output Total 5 Balance 1220 Intake: IV 1225 Output: Estimated Blood Loss 5 Other: Voiding Method Toilet # Voids 2 Weight 109.5 kg 109.5 kg PHYSICAL EXAMINATION: Patient is lying in the bed comfortably, no acute distress, awake alert and oriented.. HEENT: Normocephalic. Neck is supple. Pupils reactive. Nostrils clear. Oral cavity is moist. Neck reveals no JVD, carotid bruits, or thyromegaly. CHEST EXAMINATION: Trachea is central. Symmetrical expansion. Lung lam clear to auscultation and percussion. CARDIAC: Normal S1, S2 with no gallops. No murmurs ABDOMEN: Soft. Bowel sounds present. Nontender. No organomegaly. No abdominal bruits. Extremities: reveal no edema. No clubbing or cyanosis Neurologically awake, alert, oriented x3 with well-coordinated movements. No focal deficits noted Skin: No rash or skin lesions. Psychiatric: Coperative. Nonsuicidal, anxious. Musculoskeletal: No joint swelling or deformity. Normal range of motion. Assessment and Plan Assessment: S/p Juan fundoplication postoperative day 0 GERD Fibromyalgia Hiatal hernia History of hemorrhoids History of sclerosis of the right sacroiliac joint. History of pseudoseizures in 2018 Currently everyday smoker History of and cholecystectomy DVT prophylaxis. Plan: Patient declined IV hydration and symptomatic management for nausea. Will obtain EKG and troponin level. Follow-up CBC and BMP. DVT prophylaxis with Lovenox subcu. We will continue to follow closely and further recommendations based on clinical course. Patient was started on clear liquid diet. Thank you for your consult. Time with Patient: Greater than 30
[2022-03-25] MEDS: D5-0.45% NACL WITH KCL 20MEQ/L 1,000 ML IV SCH ×2 (00:30→07:25)
[2022-03-25 03:27] VITALS: RESP 18; TEMP 98.1
[2022-03-25] MEDS: HYDROmorphone 1 MG/ML 1 ML SYRINGE IVP PRN (04:09)
[2022-03-25] MEDS: METOCLOPRAMIDE 5 MG/ML 2 ML VIAL IVP SCH (05:59)
[2022-03-25] MEDS: LACTATED RINGERS 1,000 ML IV SCH (07:09)
[2022-03-25 07:33] VITALS: BP 108/67; PULSE 74
[2022-03-25] MEDS ORDERED: ENOXAPARIN 40 MG/0.4 ML SYRINGE SQ SCH (09:00)
[2022-03-25] MEDS ORDERED: traMADol 50 MG TAB PO PRN (09:27)
[2022-03-25] MEDS ORDERED: HYDROcodone/APAP 5-325MG 1 EACH TAB PO PRN (09:37)
[2022-03-25 10:02] LABS: Basophils # (A) 0.01 X 10*3/uL (0.00-0.10); Basophils % (A) 0.1 %; Eosinophils # (A) 0.03 X 10*3/uL (0.04-0.35); Eosinophils % (A) 0.3 %; HCT 36.5 % (37.2-46.3); HGB 11.6 g/dL (12.0-15.0); Immature Grans, Automated 0.4 %; Lymphocytes % (A) 24.9 %; MCH 27.6 pg (27.0-32.0); MCHC 31.8 g/dL (32.0-37.0); MCV 86.7 fL (80.0-97.0); Mean Platelet Volume 10.6 fL (9.5-12.2); Monocytes # (A) 0.66 X 10*3/uL (0.20-1.00); Monocytes % (A) 6.6 %; NRBC Per 100 WBC 0 /100 WBCS (0.0-0.0); Neutrophils # (A) 6.81 X 10*3/uL (1.80-7.70); Neutrophils % (A) 67.7 %; Platelet Count 283 X 10*3/uL (140-440); RBC 4.21 X 10*6/uL (4.10-5.20); RDW 13.8 % (11.5-14.5); WBC 10.05 X 10*3/uL (4.50-10.00)
[2022-03-25 10:25] LABS: African American GFR (CKD) 155.9 (60.0-200.0); Blood Urea Nitrogen 3.7 mg/dL (9.0-27.0); Calcium 8.7 mg/dL (8.7-10.3); Carbon Dioxide 23.6 mmol/L (20.0-27.5); Chloride 106 mmol/L (96-109); Glucose 102 mg/dL (70-110); Non-African American GFR(CKD) 134.5 (60.0-200.0); Potassium 4.5 mmol/L (3.5-5.5); Sodium 137 mmol/L (135-145)
[2022-03-25 10:27] VITALS: BMI 37.8
[2022-03-25] MEDS: SIMETHICONE 80 MG CHEWABLE PO PRN (10:30)
--- NOTE | 2022-03-25 12:52 | P.DS ---
Providers Date of admission: 03/24/22 22:09 Expected date of discharge: 03/25/22 Attending physician: Faheem Murphy Consults: 03/24/22 09:56 Consult Physician Routine Consulting Provider: Kenji Olvera Consult Reason/Comments: Medical management Do you want consulting provider notified?: Yes Primary care physician: Stated None Hospital Course: Discharge diagnoses 1. GERD status post laparoscopic Juan fundoplication Hospital course This is a 26-year-old female with a history of GERD she is status post laparoscopic Juan fundoplication. She is tolerating the Juan clear liquid diet. Her pain is controlled. Denies any nausea or vomiting. Afebrile. She has been up and ambulating. Denies any difficulty swallowing. She is stable for discharge. Please refer to chart for any further details. Physician Cash Register Operator note has been reviewed by physician. Signing provider agrees with the documented findings, assessment, and plan of care. Patient Condition at Discharge: Stable Plan - Discharge Summary Discharge Rx Participant: No New Discharge Prescriptions: New Simethicone Chew [Mylicon Chew] 80 mg PO QID PRN tab PRN Reason: Indigestion HYDROcodone/APAP 5-325MG [[place] 5-325] 1 tab PO Q6HR PRN 3 Days #12 tab PRN Reason: Pain Docusate [Colace] 100 mg PO DAILY #10 capsule Continue Phentermine HCl [Adipex-P] 37.5 mg PO DAILY Bismuth Subsalicylate [Pepto-Bismol] 262 mg PO DIRECTED PRN PRN Reason: Heartburn Discharge Medication List Bismuth Subsalicylate [Pepto-Bismol] 262 mg PO DIRECTED PRN 03/20/22 [History] Phentermine HCl [Adipex-P] 37.5 mg PO DAILY 03/20/22 [History] Docusate [Colace] 100 mg PO DAILY #10 capsule 03/25/22 [Rx] HYDROcodone/APAP 5-325MG [[place] 5-325] 1 tab PO Q6HR PRN 3 Days #12 tab 03/25/22 [Rx] Simethicone Chew [Mylicon Chew] 80 mg PO QID PRN tab 03/25/22 [Rx] Follow up Appointment(s)/Referral(s): Faheem Murphy MD [STAFF PHYSICIAN] - 1 Week Activity/Diet/Wound Care/Special Instructions: No driving while taking [place] No lifting over 10 pounds Shower daily. No soaking or tub baths for 2 weeks Very light activity until you are reevaluated at your follow up appointment with your surgeon
--- NOTE | 2022-03-25 15:23 | P.PN ---
Subjective Progress Note Date: 03/25/22 - Reason for Consult Consult date: 03/24/22 Medical management - Chief Complaint Status post Juan fundoplication surgery. - History of Present Illness Patient is a 26-year-old female with a known history of GERD, hiatal hernia, fibromyalgia and history of pseudoseizures and currently everyday smoker was admitted to the hospital for Juan fundoplication surgery. Patient has been having GERD symptoms for the past 9 years. She did have a EGD about 6 months ago and found him gastritis and hiatal hernia. Patient was admitted to the hospital for Juan fundoplication. Patient tolerated the procedure well. Currently lying in the bed. Awake alert and oriented x3. No nausea or vomiting. Patient does have epigastric discomfort. Pain radiating to the left upper chest and to the neck. No headache or dizziness or lightheadedness. No fever no chills.. No cough or sputum production. 03/25/2022 Patient is seen in follow-up today currently sleeping although easily arousable. Patient having some generalized pain and will continue with pain management per surgical services. Patient is maintained on clear liquid diet and will continue. Home medications have been resumed and patient plans on being discharged today. Encourage the patient to follow-up with primary care provider along with surgery in the outpatient setting as scheduled. Patient denies chest pain or shortness of breath. Patient is afebrile. Patient denies any nausea or vomiting and tolerating clear liquid diet. Review of systems: Constitutional: No reports of fatigue, fever, or chills Cardiovascular: No reports of chest pain or palpitations Respiratory: No reports of shortness of breath or cough GI: No reports of nausea, vomiting, reports no bowel movement as of yet and passing minimal gas, mild abdominal pain reported : No reports of dysuria or retention Neurovascular: No reports of weakness or numbness All medications have been reviewed Physical exam: Patient is lying in the bed comfortably asleep although easily arousable, no acute distress, alert and oriented.. Obese. HEENT: Normocephalic. Neck is supple. Pupils reactive. Nostrils clear. Oral cavity is moist. Neck reveals no JVD, carotid bruits, or thyromegaly. CHEST EXAMINATION: Trachea is central. Symmetrical expansion. Lung lam clear to auscultation and percussion. CARDIAC: Normal S1, S2 with no gallops. No murmurs ABDOMEN: Soft. Bowel sounds present. Nontender. No organomegaly. No abdominal bruits. Extremities: reveal no edema. No clubbing or cyanosis Neurologically awake, alert, oriented x3 with well-coordinated movements. No focal deficits noted Skin: No rash or skin lesions. Psychiatric: Coperative. Nonsuicidal, anxious. Musculoskeletal: No joint swelling or deformity. Normal range of motion. Assessment: S/p Juan fundoplication postoperative day 1 GERD Fibromyalgia Hiatal hernia History of hemorrhoids History of sclerosis of the right sacroiliac joint. History of pseudoseizures in 2018 Currently everyday smoker History of and cholecystectomy DVT prophylaxis. Plan: Patient reports to tolerating clear liquid diet and will continue per surgery and plan is for discharge today by surgical services. Patient with some mild abdominal discomfort and will continue with pain management per surgery.. Labs within normal limits today and hemoglobin 11.6, WBC mildly reactive at 10.05 with no signs of infection noted and patient is afebrile and denies any chest pain or shortness of breath. Patient reports to passing gas although did not have a bowel movement and is urinating with no difficulties. DVT prophylaxis with Lovenox subcu. We will continue to follow closely and further recommendations based on clinical course during hospitalization. Thank you for this consultation. Patient plans on being discharged this afternoon. Encourage the patient to follow-up with primary care provider and keep scheduled surgical appointment. The impression and plan of care has been dictated by Ni Dorsey, Nurse Practitioner as directed. Dr. Gwendolyn MD I have performed a history and examination and MDM of this patient, discussed the same with the dictator, and agree with the dictator's assessment and plan as written ,documented as a scribe. Based on total visit time, I have performed more than 50% of the visit. Objective - Vital Signs Vital signs: Vital Signs Temp 98.1 F 03/25/22 07:00 Pulse 74 03/25/22 07:00 Resp 18 03/25/22 07:30 BP 108/67 03/25/22 07:00 Pulse Ox 97 03/25/22 07:00 FiO2 Intake & Output 03/24/22 03/25/22 03/25/22 18:59 06:59 18:59 Intake Total 1225 Output Total 5 Balance 1220 Weight 109.5 kg Intake: IV 1225 Output: Estimated Blood Loss 5 Other: Voiding Method Toilet Toilet # Voids 2 2 - Labs CBC & Chem 7: 03/25/22 06:32 03/25/22 06:32
== END 2022-03-25 13:23 | disposition home or self-care (01) ==
LOC: OR 07:21 → 6NMEDSUR 09:49 → OR 22:09 → 6NMEDSUR 22:09
PROVIDERS: ADMIT Surgery; ATTEND Surgery
DX: K21.9 Gastro-esophageal reflux disease without esophagitis (principal); M79.7 Fibromyalgia; G43.909 Migraine, unspecified, not intractable, without status migrainosus; K58.9 Irritable bowel syndrome, unspecified; K44.9 Diaphragmatic hernia without obstruction or gangrene; F41.9 Anxiety disorder, unspecified; F31.9 Bipolar disorder, unspecified; Z98.891 History of uterine scar from previous surgery; Z90.49 Acquired absence of other specified parts of digestive tract; Z98.890 Other specified postprocedural states; R13.10 Dysphagia, unspecified; Z87.891 Personal history of nicotine dependence; Z82.49 Family history of ischemic heart disease and other diseases of the circulatory system; Z79.899 Other long term (current) drug therapy; Z88.0 Allergy status to penicillin; Z91.09 Other allergy status, other than to drugs and biological substances
CPT/HCPCS: 81025; 80048; 84443; 84484; 85025; 43280; G0378 ×2; J2250; J1100; J2710; J2765 ×2; J2175; J0690 ×2; J2405; J1650; J3010; J1170 ×3; J1885; J0330; J2704; J2001

== ENCOUNTER → 2022-05-18 | Outpatient (CLI) | payer OTHER ==
--- NOTE | 2022-05-18 12:14 | FL ---
EXAMINATION TYPE: FL barium swallow DATE OF EXAM: 05/18/2022 COMPARISON: 03/16/2022 HISTORY: Food getting stuck, epigastric pain TECHNIQUE: A single contrast UGI study is performed. Thin and thick barium was utilized. FINDINGS: [place] contrast extends through the esophagus to the gastroesophageal junction. Gastroesoph ageal junction has some mild narrowing with only mild hesitancy of contrast passing through. No hiata l hernia is evident. No extravasation of contrast is evident. A few tertiary contractions were identi fied. IMPRESSIONS: 1. Mild presbyesophagus. 2. Minimal narrowing is through the gastroesophageal junction. Gastroesophageal junction however open s without significant hesitancy of contrast passing through.
== END | disposition home or self-care (01) ==
LOC: RADUSWWP 10:22
PROVIDERS: ATTEND Surgery
DX: K22.89 Other specified disease of esophagus (principal)
CPT/HCPCS: 74220

== ENCOUNTER 2022-05-21 10:30 | Day surgery (SDC) | payer OTHER ==
[2022-05-19 18:05] VITALS: BMI 34.4
[~2022-05-21 10:30] MED LIST changes: -ACETAMINOPHEN TAB 500 MG TAB PO PRN; -DEXAMETHASONE SOD PHOSPHATE 4 MG/ML 1 ML VIAL IV ONE; -HEPARIN SODIUM,PORCINE/PF 5,000 UNIT/0.5 ML SYRINGE SQ PRN; +LACTATED RINGERS 1,000 ML IV SCH; -MIDAZOLAM 2 MG/2 ML VIAL IV PRN; -ONDANSETRON 4 MG/2 ML VIAL IVP ONE; +ONDANSETRON 4 MG/2 ML VIAL IVP PRN; +fentaNYL (PF) 50 MCG/ML 2 ML AMP IV PRN
[2022-05-21 11:12] LABS: Glucose,Whole Blood 100 mg/dL (70-110)
[2022-05-21 11:15] VITALS: TEMP 97
--- NOTE | 2022-05-21 11:33 | P.GSHP ---
History of Present Illness H&P Date: 05/21/22 Chief Complaint: Mild dysphagia 26-year-old female with history of some mild dysphagia. Patient has safer EGD. Her recent esophagram is within normal limits. Past Medical History Past Medical History: Fibromyalgia, GERD/Reflux, Neurologic Disorder Additional Past Medical History / Comment(s): ABD PAIN, occular MIGRAINES, IBS, HIATAL HERNIA, SCLEROSIS RT SI JOINT, HX HEMORRHOIDS, hx. bacterial vaginitis, d ysphagia to food & liquids sometimes, BLOATING AND DIARRHEA, hx. pseudo seizures 2018-nothing like that since, MYOFACIAL PAIN SYNDROME History of Any Multi-Drug Resistant Organisms: None Reported Past Surgical History: Section, Cholecystectomy, Hernia Repair Additional Past Surgical History / Comment(s): COLONOSCOPY, EGD, COLPOSCOPY, surg. right hip for labral tear, bone spurs, ESTRADA PROCEDURE Past Anesthesia/Blood Transfusion Reactions: Motion Sickness Additional Past Anesthesia/Blood Transfusion Reaction / Comment(s): has woke up during surgery before & wasn't able to communicate & tell people she was awake, very anxious about this Smoking Status: Former smoker - Past Family History Mother Family Medical History: Deep Vein Thrombosis (DVT) Medications and Allergies Home Medications Medication Instructions Recorded Confirmed Type Lisdexamfetamine Dimesylate 30 mg PO QAM 05/19/22 05/19/22 History [Vyvelhame] Allergies Allergy/AdvReac Type Severity Reaction Status Date / Time amoxicillin AdvReac Diarrhea Verified 05/21/22 11:15 Penicillins AdvReac Abdominal Verified 05/21/22 11:15 Pain, Diarrhea, Nausea tuberculin,PPD,multi-puncture AdvReac rash,excessive Verified 05/21/22 11:15 swelling Surgical - Exam Vital Signs Temp Pulse Resp BP Pulse Ox 97 F L 104 H 18 146/102 100 05/21/22 11:14 05/21/22 11:14 05/21/22 11:14 05/21/22 11:14 05/21/22 11:14 - General well developed, well nourished, no distress - Eyes PERRL - ENT normal pinna - Neck no masses - Respiratory normal expansion - Cardiovascular Rhythm: regular - Abdomen Abdomen: soft, non tender Assessment and Plan Assessment: Mild dysphagia. We'll perform EGD.
[2022-05-21] MEDS ORDERED: PROPOFOL 10 MG/ML 20 ML VIAL IV ONE (11:34)
[2022-05-21] MEDS ORDERED: LIDOCAINE 2% INJ 20 MG/ML (2 ML VIAL) ONE (11:34)
--- NOTE | 2022-05-21 11:43 | P.OP ---
Date of Procedure: 05/21/22 Preoperative Diagnosis: Dysphagia Postoperative Diagnosis: Normal EGD Procedure(s) Performed: EGD Anesthesia: MAC Surgeon: Faheem Murphy Pathology: none sent Condition: stable Disposition: PACU Description of Procedure: The patient's placed on the endoscopy table in the lateral position. She received IV sedation. The gastroscope placed oropharynx passed in the esophagus into the stomach. Scope was placed through the pylorus. The first and second portion of the duodenum appeared normal. The scope was then brought back the antrum this appeared normal. Scope was retroflexed remainder stomach appeared normal. There was no significant hiatal hernia. The GE junction was at 40 cm. The distal esophagus appeared normal. The proximal esophagus appeared normal. The scope was withdrawn for patient.
[2022-05-21 11:49] VITALS: RESP 16
[2022-05-21 12:10] VITALS: BP 135/80; PULSE 80
== END 2022-05-21 12:17 | disposition home or self-care (01) ==
LOC: ORWHC2ENDO 10:30
PROVIDERS: ATTEND Surgery
DX: R13.10 Dysphagia, unspecified (principal); K21.9 Gastro-esophageal reflux disease without esophagitis; M79.7 Fibromyalgia; Z90.49 Acquired absence of other specified parts of digestive tract; Z79.899 Other long term (current) drug therapy; Z82.49 Family history of ischemic heart disease and other diseases of the circulatory system; Z88.0 Allergy status to penicillin; Z88.7 Allergy status to serum and vaccine; G89.29 Other chronic pain; F17.210 Nicotine dependence, cigarettes, uncomplicated
CPT/HCPCS: 81025; 43235; J2704; J2001

== ENCOUNTER 2023-01-30 22:31 | Emergency (ER) | payer OTHER ==
[2023-01-30 22:44] VITALS: TEMP 98.2
[2023-01-30] MEDS ORDERED: SODIUM CHLORIDE 0.9% 1,000 ML IV STA (22:58)
[2023-01-30 23:15] VITALS: RESP 17
--- NOTE | 2023-01-30 23:25 | XR ---
EXAMINATION TYPE: XR chest 2V DATE OF EXAM: 01/30/2023 11:21 PM COMPARISON: Chest x-ray 03/20/2018 TECHNIQUE: XR chest 2V . CLINICAL INDICATION:Female, 27 years old with history of pre-syncope; FINDINGS: Lungs/Pleura: There is no evidence of pleural effusion, focal consolidation, or pneumothorax. Pulmonary vascularity: Unremarkable. Heart/mediastinum: Cardiomediastinal silhouette is unremarkable. Musculoskeletal: No acute osseous pathology. IMPRESSION: No acute cardiopulmonary disease/process.
[2023-01-30 23:43] LABS: Basophils % (A) 0 %; Eosinophils # (A) 0.2 k/uL (0-0.7); Eosinophils % (A) 2 %; HCT 35.7 % (34.0-46.0); Lymphocytes # (A) 2.4 k/uL (1.0-4.8); Lymphocytes % (A) 30 %; MCH 29.3 pg (25.0-35.0); MCHC 33.6 g/dL (31.0-37.0); MCV 87.2 fL (80.0-100.0); Mean Platelet Volume 7.9; Monocytes # (A) 0.4 k/uL (0-1.0); Monocytes % (A) 4 %; Neutrophils # (A) 5.1 k/uL (1.3-7.7); Neutrophils % (A) 63 %; Platelet Count 274 k/uL (150-450); RBC 4.09 m/uL (3.80-5.40); RDW 13.5 % (11.5-15.5); WBC 8.2 k/uL (3.8-10.6)
--- NOTE | 2023-01-30 23:44 | ED ---
General Adult HPI - General Chief complaint: Syncope Stated complaint: abd pain Time Seen by Provider: 01/30/23 22:45 Source: patient Mode of arrival: EMS Limitations: no limitations - History of Present Illness Initial comments: Patient is a 27-year-old female presenting with chief complaint of generalized weakness. Patient states that symptoms started today. Patient notes that she recently had a biopsy of the fall, she was seen at [facility] yesterday due to concerns for possible infection. She was started on Keflex and Bactrim. Patient states that she feels very weak and "I just feel like I could pass out". Patient does admit to some suprapubic pressure. No vaginal bleeding or discharge. She denies any chest pain, difficulty breathing, palpitations, fever, chills, numbness, tingling. - Related Data Home Medications Medication Instructions Recorded Confirmed Lisdexamfetamine Dimesylate 30 mg PO QAM 05/19/22 05/19/22 [Vyvanse] Allergies Allergy/AdvReac Type Severity Reaction Status Date / Time amoxicillin AdvReac Diarrhea Verified 05/21/22 11:15 Penicillins AdvReac Abdominal Verified 05/21/22 11:15 Pain, Diarrhea, Nausea tuberculin,PPD,multi-puncture AdvReac rash,excessive Verified 05/21/22 11:15 swelling Review of Systems ROS Statement: Those systems with pertinent positive or pertinent negative responses have been documented in the HPI. ROS Other: All systems not noted in ROS Statement are negative. Past Medical History Past Medical History: Fibromyalgia, GERD/Reflux, Neurologic Disorder Additional Past Medical History / Comment(s): ABD PAIN, occular MIGRAINES, IBS, HIATAL HERNIA, SCLEROSIS RT SI JOINT, HX HEMORRHOIDS, hx. 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 right hip for labral tear, bone spurs Past Anesthesia/Blood Transfusion Reactions: Motion Sickness Additional Past Anesthesia/Blood Transfusion Reaction / Comment(s): has woke up during surgery before & wasn't able to communicate & tell people she was awake, very anxious about this Past Psychological History: Anxiety, Bipolar, Depression Smoking Status: Former smoker - Past Family History Mother Family Medical History: Deep Vein Thrombosis (DVT) General Exam Limitations: no limitations General appearance: alert, in no apparent distress Head exam: Present: atraumatic, normocephalic, normal inspection Eye exam: Present: normal appearance, EOMI. Absent: periorbital swelling Neck exam: Present: normal inspection, full ROM Respiratory exam: Present: normal lung sounds bilaterally. Absent: respiratory distress, wheezes, rales, rhonchi, stridor Cardiovascular Exam: Present: regular rate, normal rhythm, normal heart sounds. Absent: systolic murmur, diastolic murmur, rubs, gallop, clicks External exam: Present: other (Small amount of discharge noted from the biopsy site, no erythema or tenderness or swelling.) Neurological exam: Present: alert, oriented X3, CN II-XII intact Psychiatric exam: Present: normal affect, normal mood Course Vital Signs 01/30/23 01/30/23 22:40 23:07 Temperature 98.2 F Pulse Rate 70 70 Respiratory 16 17 Rate Blood Pressure 125/92 118/89 O2 Sat by Pulse 99 100 Oximetry Medical Decision Making - Medical Decision Making Was pt. sent in by a medical professional or institution (, PA, [employer] SPECIAL EDUCATION TEACHER, urgent care, hospital, or longterm...) When possible be specific @ -No Did you speak to anyone other than the patient for history (EMS, parent, family, police, friend...)? What history was obtained from this source @ -No Did you review nursing and triage notes (agree or disagree)? Why? @ -I reviewed and agree with nursing and triage notes Were old charts reviewed (outside hosp., previous admission, EMS record, old EKG, old radiological studies, urgent care reports/EKG's, longterm records)? Report findings @ -No old charts were reviewed Differential Diagnosis (chest pain, altered mental status, abdominal pain women, abdominal pain men, vaginal bleeding, weakness, fever, dyspnea, syncope, headache, dizziness, GI bleed, back pain, seizure, CVA, palpatations, mental health, musculoskeletal)? @ -MDM Differential Dizziness: Benign paroxysmal positional Vertigo, Menieres disease, otitis media, acoustic neuroma, vertebrobasilar insufficiency, cerebellar stroke, encephalitis, hypovolemic, arrhythmia, coronary artery syndrome, anemia this is not meant to be an all-inclusive list EKG interpreted by me (3pts min.). @ -As above X-rays interpreted by me (1pt min.). @ -Chest X-ray shows no acute process. CT interpreted by me (1pt min.). @ -None done U/S interpreted by me (1pt. min.). @ -None done What testing was considered but not performed or refused? (CT, X-rays, U/S, labs)? Why? @ -None What meds were considered but not given or refused? Why? @ -None Did you discuss the management of the patient with other professionals (professionals i.e. Dr., PA, [employer] SPECIAL EDUCATION TEACHER, lab, RT, psych nurse, web content & social media manager, toy painter, teacher, correction officer head, casework manager)? Give summary @ -No Was smoking cessation discussed for >3mins.? @ -No Was critical care preformed (if so, how long)? @ -No Were there social determinants of health that impacted care today? How? (Homelessness, low income, unemployed, alcoholism, drug addiction, transportation, low edu. Level, literacy, decrease access to med. care, long-term, rehab)? @ -No Was there de-escalation of care discussed even if they declined (Discuss DNR or withdrawal of care, Hospice)? DNR status @ -No What co-morbidities impacted this encounter? (DM, HTN, Smoking, COPD, CAD, Cancer, CVA, ARF, Chemo, Hep., AIDS, mental health diagnosis, sleep apnea, morbid obesity)? @ -None Was patient admitted / discharged? Hospital course, mention meds given and rout e, prescriptions, significant lab abnormalities, going to OR and other pertinent info. @ -Patient is a 27-year-old female presenting with chief complaint of weakness. Patient recently had a biopsy of the fall, was seen [facility] yesterday and started on Keflex and Bactrim. On physical examination there is a small amount of discharge from the biopsy site, no erythema or swelling or tenderness. No fevers or chills. She is nontoxic appearing lab work is essenti ally unremarkable. Urine toxicology is positive for amphetamines, patient takes Vyvanse, and opiates, patient took Tylenol 3 today. Chest x-ray and EKG showed no acute process. Patient is educated on these findings and instructed to continue taking her antibiotics. 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 Follow-up with PCP. Report back to ER with any new or worsening symptoms. Discussed return parameters and answered all questions. Patient conveyed verbal understanding and agreed to the plan. I discussed this case in detail with my attending Dr. Yeung Undiagnosed new problem with uncertain prognosis? @ -No Drug Therapy requiring intensive monitoring for toxicity (Heparin, Nitro, Insulin, Cardizem)? @ -No Were any procedures done? @ -No Diagnosis/symptom? @ -Fatigue Acute, or Chronic, or Acute on Chronic? @ -Acute Uncomplicated (without systemic symptoms) or Complicated (systemic symptoms)? @ -Uncomplicated Side effects of treatment? @ -No Exacerbation, Progression, or Severe Exacerbation? @ -No Poses a threat to life or bodily function? How? (Chest pain, [place], [place], pneumonia, PE, COPD, DKA, ARF, appy, cholecystitis, CVA, Diverticulitis, Homicidal, Suicidal, threat to staff... and all critical care pts) @ -No - Lab Data Result diagrams: 01/30/23 23:07 01/30/23 23:07 Lab Results 01/30/23 01/30/23 01/30/23 Range/Units 23:07 23:07 23:07 WBC 8.2 (3.8-10.6) k/uL RBC 4.09 (3.80-5.40) m/uL Hgb 12.0 (11.4-16.0) gm/dL Hct 35.7 (34.0-46.0) % MCV 87.2 (80.0-100.0) fL MCH 29.3 (25.0-35.0) pg MCHC 33.6 (31.0-37.0) g/dL RDW 13.5 (11.5-15.5) % Plt Count 274 (150-450) k/uL MPV 7.9 Neutrophils % 63 % Lymphocytes % 30 % Monocytes % 4 % Eosinophils % 2 % Basophils % 0 % Neutrophils # 5.1 (1.3-7.7) k/uL Lymphocytes # 2.4 (1.0-4.8) k/uL Monocytes # 0.4 (0-1.0) k/uL Eosinophils # 0.2 (0-0.7) k/uL Basophils # 0.0 (0-0.2) k/uL PT 10.7 (9.0-12.0) sec INR 1.0 (<1.2) APTT 24.4 (22.0-30.0) sec Sodium 138 (137-145) mmol/L Potassium 3.4 L (3.5-5.1) mmol/L Chloride 107 (98-107) mmol/L Carbon Dioxide 22 (22-30) mmol/L Anion Gap 9 mmol/L BUN 6 L (7-17) mg/dL Creatinine 0.61 (0.52-1.04) mg/dL Est GFR (CKD-EPI)AfAm >90 (>60 ml/min/1.73 sqM) Est GFR (CKD-EPI)NonAf >90 (>60 ml/min/1.73 sqM) Glucose 81 (74-99) mg/dL Calcium 8.7 (8.4-10.2) mg/dL Magnesium 1.9 (1.6-2.3) mg/dL Total Bilirubin 0.3 (0.2-1.3) mg/dL AST 18 (14-36) U/L ALT 17 (4-34) U/L Alkaline Phosphatase 51 (38-126) U/L Troponin I (0.000-0.034) ng/mL Total Protein 6.4 (6.3-8.2) g/dL Albumin 3.6 (3.5-5.0) g/dL Urine Color Urine Appearance (Clear) Urine pH (5.0-8.0) Ur Specific [place] (1.001-1.035) Urine Protein (Negative) Urine Glucose (UA) (Negative) Urine Ketones (Negative) Urine Blood (Negative) Urine Nitrite (Negative) Urine Bilirubin (Negative) Urine Urobilinogen (<2.0) mg/dL Ur Leukocyte Esterase (Negative) Urine HCG, Qual (Not Detectd) Urine Opiates Screen (NotDetected) Ur Oxycodone Screen (NotDetected) Urine Methadone Screen (NotDetected) Ur Propoxyphene Screen (NotDetected) Ur Barbiturates Screen (NotDetected) U Tricyclic Antidepress (NotDetected) Ur Phencyclidine Scrn (NotDetected) Ur Amphetamines Screen (NotDetected) U Methamphetamines Scrn (NotDetected) U Benzodiazepines Scrn (NotDetected) Urine Cocaine Screen (NotDetected) U Marijuana (THC) Screen (NotDetected) 01/30/23 01/30/23 01/30/23 Range/Units 23:07 23:45 23:45 WBC (3.8-10.6) k/uL RBC (3.80-5.40) m/uL Hgb (11.4-16.0) gm/dL Hct (34.0-46.0) % MCV (80.0-100.0) fL MCH (25.0-35.0) pg MCHC (31.0-37.0) g/dL RDW (11.5-15.5) % Plt Count (150-450) k/uL MPV Neutrophils % % Lymphocytes % % Monocytes % % Eosinophils % % Basophils % % Neutrophils # (1.3-7.7) k/uL Lymphocytes # (1.0-4.8) k/uL Monocytes # (0-1.0) k/uL Eosinophils # (0-0.7) k/uL Basophils # (0-0.2) k/uL PT (9.0-12.0) sec INR (<1.2) APTT (22.0-30.0) sec Sodium (137-145) mmol/L Potassium (3.5-5.1) mmol/L Chloride (98-107) mmol/L Carbon Dioxide (22-30) mmol/L Anion Gap mmol/L BUN (7-17) mg/dL Creatinine (0.52-1.04) mg/dL Est GFR (CKD-EPI)AfAm (>60 ml/min/1.73 sqM) Est GFR (CKD-EPI)NonAf (>60 ml/min/1.73 sqM) Glucose (74-99) mg/dL Calcium (8.4-10.2) mg/dL Magnesium (1.6-2.3) mg/dL Total Bilirubin (0.2-1.3) mg/dL AST (14-36) U/L ALT (4-34) U/L Alkaline Phosphatase (38-126) U/L Troponin I <0.012 (0.000-0.034) ng/mL Total Protein (6.3-8.2) g/dL Albumin (3.5-5.0) g/dL Urine Color Light Yellow Urine Appearance Clear (Clear) Urine pH 6.5 (5.0-8.0) Ur Specific [place] 1.005 (1.001-1.035) Urine Protein Negative (Negative) Urine Glucose (UA) Negative (Negative) Urine Ketones Negative (Negative) Urine Blood Negative (Negative) Urine Nitrite Negative (Negative) Urine Bilirubin Negative (Negative) Urine Urobilinogen <2.0 (<2.0) mg/dL Ur Leukocyte Esterase Negative (Negative) Urine HCG, Qual Not Detected (Not Detectd) Urine Opiates Screen Detected H (NotDetected) Ur Oxycodone Screen Not Detected (NotDetected) Urine Methadone Screen Not Detected (NotDetected) Ur Propoxyphene Screen Not Detected (NotDetected) Ur Barbiturates Screen Not Detected (NotDetected) U Tricyclic Antidepress Not Detected (NotDetected) Ur Phencyclidine Scrn Not Detected (NotDetected) Ur Amphetamines Screen Detected H (NotDetected) U Methamphetamines Scrn Not Detected (NotDetected) U Benzodiazepines Scrn Not Detected (NotDetected) Urine Cocaine Screen Not Detected (NotDetected) U Marijuana (THC) Screen Not Detected (NotDetected) Disposition Clinical Impression: Fatigue Disposition: HOME SELF-CARE Condition: Good Instructions (If sedation given, give patient instructions): Lightheadedness (ED) Additional Instructions: Follow-up with PCP and veneer production machine operator. Report back to ER with any new or worsening symptoms. Continue taking medication as prescribed. Is patient prescribed a controlled substance at d/c from ED?: No Referrals: Jaswant Muñoz MD [Primary Care Provider] - 1-2 days Time of Disposition: 00:22
[2023-01-30 23:45] VITALS: BP 118/89; PULSE 70
[2023-01-30 23:51] LABS: ALT 17 U/L (4-34); AST 18 U/L (14-36); African American GFR (CKD) >90 (>60 ml/min/1.73 sqM); Albumin 3.6 g/dL (3.5-5.0); Alkaline Phosphatase 51 U/L (38-126); Anion Gap 9 mmol/L; Blood Urea Nitrogen 6 mg/dL (7-17); Calcium 8.7 mg/dL (8.4-10.2); Carbon Dioxide 22 mmol/L (22-30); Chloride 107 mmol/L (98-107); Glucose 81 mg/dL (74-99); Magnesium 1.9 mg/dL (1.6-2.3); Non-African American GFR(CKD) >90 (>60 ml/min/1.73 sqM); Potassium 3.4 mmol/L (3.5-5.1); Sodium 138 mmol/L (137-145); Total Bilirubin 0.3 mg/dL (0.2-1.3); Total Protein 6.4 g/dL (6.3-8.2)
[2023-01-30 23:52] LABS: Partial Thromboplastin Time 24.4 sec (22.0-30.0); Prothrombin Time 10.7 sec (9.0-12.0)
[2023-01-31 00:08] LABS: Appearance,Urine Clear (Clear); Bilirubin,Urine Negative (Negative); Blood,Urine Negative (Negative); Color,Urine Light Yellow; Glucose,Urine (UA) Negative (Negative); Ketones,Urine Negative (Negative); Leukocyte Esterase,Urine Negative (Negative); Nitrite,Urine Negative (Negative); PH, Urine 6.5 (5.0-8.0); Protein,Urine Negative (Negative); Specific Gravity,Urine 1.005 (1.001-1.035); Urobilinogen,Urine <2.0 mg/dL (<2.0)
[2023-01-31 00:17] LABS: Amphetamine Screen,Urine Detected (NotDetected); Barbiturate Screen,Urine Not Detected (NotDetected); Benzodiazepines Screen,Urine Not Detected (NotDetected); Cocaine Screen,Urine Not Detected (NotDetected); Methadone Screen, Urine Not Detected (NotDetected); Opiate Screen,Urine Detected (NotDetected); Oxycodone Screen, Urine Not Detected (NotDetected); Phencyclidine Screen,Urine Not Detected (NotDetected); Tricyclic Antidepressant,Urine Not Detected (NotDetected); Urn Cannabinoid Scrn Not Detected (NotDetected)
== END 2023-01-31 01:16 | disposition home or self-care (01) ==
LOC: EC 22:31
DX: R53.83 Other fatigue (principal); F41.9 Anxiety disorder, unspecified; F31.9 Bipolar disorder, unspecified; Z87.891 Personal history of nicotine dependence; Z88.0 Allergy status to penicillin; Z88.8 Allergy status to other drugs, medicaments and biological substances
CPT/HCPCS: 36415; 71046; 80053; 80306; 81003; 81025; 83735; 84484; 85025; 85610; 85730; 93005; 96360; 99284

== ENCOUNTER 2023-08-15 17:18 | Observation (INO) | payer OTHER ==
[2023-08-15] MEDS ORDERED: SODIUM CHLORIDE 0.9% 1,000 ML IV STA (17:42)
[2023-08-15] MEDS ORDERED: ONDANSETRON 4 MG/2 ML VIAL IVP STA (17:42)
[2023-08-15] MEDS ORDERED: MORPHINE SULFATE 4 MG/ML SYRINGE IVP STA (17:42)
[2023-08-15] MEDS ORDERED: DEXAMETHASONE SOD PHOSPHATE 10 MG/ML 1 ML VIAL IVP STA (17:42)
[2023-08-15 18:20] LABS: Basophils % (A) 0 %; Eosinophils # (A) 0.2 k/uL (0-0.7); Eosinophils % (A) 2 %; HCT 39.2 % (34.0-46.0); HGB 13.4 gm/dL (11.4-16.0); Lymphocytes # (A) 1.7 k/uL (1.0-4.8); Lymphocytes % (A) 20 %; MCH 30.2 pg (25.0-35.0); MCHC 34.1 g/dL (31.0-37.0); MCV 88.5 fL (80.0-100.0); Mean Platelet Volume 7.5; Monocytes # (A) 0.3 k/uL (0-1.0); Monocytes % (A) 4 %; Neutrophils % (A) 72 %; Platelet Count 326 k/uL (150-450); RBC 4.43 m/uL (3.80-5.40); WBC 8.4 k/uL (3.8-10.6)
--- NOTE | 2023-08-15 18:25 | CT ---
EXAMINATION TYPE: CT lumbar spine wo con, CT pelvis wo con CT DLP: 1579.3 mGycm, Automated exposure control for dose reduction was used. DATE OF EXAM: 08/15/2023 6:11 PM COMPARISON: None. CLINICAL INDICATION:Female, 27 years old with history of fall, jimmie, low back pain that radiates down the legs after a fall x few days ago. TECHNIQUE: Multiple axial images were obtained from the midportion of T11 through the sacroiliac choco nts. Soft tissue and bone windows in coronal and sagittal planes were obtained and reviewed. CT imaging of the pelvis with axial imaging with sagittal and coronal reformats. Contrast used: none. Oral contrast used: none. FINDINGS: Alignment: There are 5 lumbar type vertebral bodies within normal alignment. Bone: No evidence of fracture is identified. Discs: T12-L1: No spinal canal or neural foraminal stenosis is identified. L1-L2: No spinal canal or neural foraminal stenosis is identified. L2-L3: No spinal canal or neural foraminal stenosis is identified. L3-L4: Facet joint arthropathy and disc bulging result with mild spinal canal stenosis and mild bilat eral neural foraminal stenosis. L4-L5: Disc protrusion centrally no significant spinal canal stenosis. L5-S1: No spinal canal or neural foraminal stenosis is identified. Abdomen/pelvis/Other: The gallbladder surgically absent. Portions of the pelvis demonstrate no eviden ce for mass. There is moderate amount stool in the sigmoid colon. No evidence for acute process withi n the abdomen and pelvis. The osseous structures are intact. The urinary bladder is grossly unremarka ble. IMPRESSION: 1. No evidence for spinal fracture. 2. Disc protrusion at L4-L5 suggested. This can be confirmed with MRI. No evidence for significant sp inal canal stenosis. 3. Minimal degeneration changes to the spine. No evidence for neural foraminal stenosis. 4. No evidence for process in the pelvis to explain the patient's symptoms.
[2023-08-15 18:35] LABS: African American GFR (CKD) >90 (>60 ml/min/1.73 sqM); Anion Gap 11 mmol/L; Blood Urea Nitrogen 14 mg/dL (7-17); Calcium 9.3 mg/dL (8.4-10.2); Carbon Dioxide 19 mmol/L (22-30); Chloride 107 mmol/L (98-107); Glucose 75 mg/dL (74-99); Non-African American GFR(CKD) >90 (>60 ml/min/1.73 sqM); Potassium 4.5 mmol/L (3.5-5.1); Sodium 137 mmol/L (137-145)
--- NOTE | 2023-08-15 19:00 | ED ---
General Adult HPI - General Chief complaint: Back Pain/Injury Stated complaint: tailbone issue Time Seen by Provider: 08/15/23 17:26 Source: patient, RN notes reviewed, old records reviewed Mode of arrival: ambulatory Limitations: no limitations - History of Present Illness Initial comments: Patient is a 27-year-old female with past medical history remarkable for fibromyalgia, acid reflux, migraines who is being worked up for possible ankylosing spondylitis presents emergency Department 4 days after leaning down stairs. He was seen at [facility] in x-rays of her lower back and pelvis within normal limits. She states that since the fall 4 days days ago, she is having a large amount of lower back pain, right hip pain, shooting pain down both legs. She is also complaining of some groin paresthesias, possible urinary and bowel incontinence that she does endorse having liquid leaked from her rectum and feels like she is having a hard time pushing. States she can still feel and she has to poop and can still feel when she has to urinate. Patient does have a history of fibromyalgia and states that this may be contributory pain as well. Denies any paralysis of her lower extremities. Presents for further evaluation of this time. Denies chest pain, shortness breath, hitting her head. Denies any headaches, being on blood thinners. Presents for further evaluation at this time. - Related Data Home Medications Medication Instructions Recorded Confirmed Acetaminophen [Tylenol Extra 1,000 mg PO Q8H PRN 08/15/23 08/15/23 Strength] Albuterol Sulfate [Albuterol 1 puff PO RT-Q4H PRN 08/15/23 08/15/23 Sulfate Hfa] Ibuprofen [Motrin] 800 mg PO TID PRN 08/15/23 08/15/23 Lisdexamfetamine Dimesylate 70 mg PO DAILY 08/15/23 08/15/23 [Vyvanse] Melatonin 10 mg PO HS PRN 08/15/23 08/15/23 Nicotine 14Mg/24Hr Patch [Habitrol 1 patch TRANSDERM DAILY 08/15/23 08/15/23 14Mg/24Hr Patch] Allergies Allergy/AdvReac Type Severity Reaction Status Date / Time amoxicillin AdvReac Diarrhea Verified 08/15/23 19:45 Penicillins AdvReac Abdominal Verified 08/15/23 19:45 Pain, Diarrhea, Nausea tuberculin,PPD,multi-puncture AdvReac rash,excessive Verified 08/15/23 19:45 swelling Review of Systems ROS Statement: Those systems with pertinent positive or pertinent negative responses have been documented in the HPI. Review of Systems: CONST: Denies fever EYES: Denies blurry vision ENT: Denies nasal congestion C/V: Denies Chest pain RESP: Denies shortness of breath GI: Denies abdominal pain : Denies dysuria SKIN: Denies rash. MSK: Endorses back pain NEURO: Denies headache ROS Other: All systems not noted in ROS Statement are negative. Past Medical History Past Medical History: Fibromyalgia, GERD/Reflux, Neurologic Disorder Additional Past Medical History / Comment(s): ABD PAIN, occular MIGRAINES, IBS, HIATAL HERNIA, SCLEROSIS RT SI JOINT, HX HEMORRHOIDS, hx. bacterial vaginitis, dysphagia to food & liquids sometimes, BLOATING AND DIARRHEA, hx. pseudo seizur es 2018-nothing like that since History of Any Multi-Drug Resistant Organisms: None Reported Past Surgical History: Section, Cholecystectomy Additional Past Surgical History / Comment(s): COLONOSCOPY, EGD, COLPOSCOPY, surg. right hip for labral tear, bone spurs Past Anesthesia/Blood Transfusion Reactions: Motion Sickness Additional Past Anesthesia/Blood Transfusion Reaction / Comment(s): has woke up during surgery before & wasn't able to communicate & tell people she was awake, very anxious about this Past Psychological History: Anxiety, Bipolar, Depression Smoking Status: Current every day smoker Past Alcohol Use History: Occasional Past Drug Use History: None Reported - Past Family History Mother Family Medical History: Deep Vein Thrombosis (DVT) General Exam - General Exam Comments Initial Comments: General: Mild to moderate distress secondary to pain. HEAD: Normal with no signs of head trauma. EYES: PERRLA, EOMI, conjunctiva normal, no discharge. ENT: Hearing grossly intact, normal oropharynx. RESPIRATORY: Clear breath sounds bilaterally. No wheezes, rales, or rhonchi. C/V: Regular rate and rhythm. S1 and S2 auscultated, peripheral pulses 2+ and intact throughout ABD: Abd is soft, nontender, nondistended EXT: Normal range of motion, no obvious deformity. Tenderness to palpation of the lower lumbar spine as well as right-sided pelvis. Right-sided hip pain as well. SKIN: No rashes or lesions observed on exposed skin. NEURO: Alert and oriented x 4. Cranial nerves II-XII intact. No obvious focal sensory or strength deficits. NIH is 0. Subjective groin paresthesias. Limitations: no limitations Course Vital Signs 08/15/23 08/15/23 17:20 20:03 Temperature 98.9 F Pulse Rate 101 H 81 Respiratory 20 16 Rate Blood Pressure 135/86 132/87 O2 Sat by Pulse 99 97 Oximetry Medical Decision Making - Medical Decision Making Was pt. sent in by a medical professional or institution (, JESSE, DRILL OPERATOR PNEUMATIC, urgent care, hospital, or custodial...) When possible be specific @ -No Did you speak to anyone other than the patient for history (EMS, parent, family, police, friend...)? What history was obtained from this source @ -No Did you review nursing and triage notes (agree or disagree)? Why? @ -I reviewed and agree with nursing and triage notes Were old charts reviewed (outside hosp., previous admission, EMS record, old EKG, old radiological studies, urgent care reports/EKG's, custodial records)? Report findings @ -Charts reviewed Differential Diagnosis (chest pain, altered mental status, abdominal pain women, abdominal pain men, vaginal bleeding, weakness, fever, dyspnea, syncope, headache, dizziness, GI bleed, back pain, seizure, CVA, palpatations, mental health, musculoskeletal)? @ -Lumbar spine injury, cauda equina syndrome, electrolyte abnormality, pelvic injury. This list is not all inclusive. EKG interpreted by me (3pts min.). @ -None done X-rays interpreted by me (1pt min.). @ -None done CT interpreted by me (1pt min.). @ -CT lumbar spine and pelvis reveals disc protrusion at L4-L5 with no evidence of significant spinal canal stenosis. U/S interpreted by me (1pt. min.). @ -None done What testing was considered but not performed or refused? (CT, X-rays, U/S, la bs)? Why? @ -None What meds were considered but not given or refused? Why? @ -None Did you discuss the management of the patient with other professionals (professionals i.e. , JESSE, DRILL OPERATOR PNEUMATIC, lab, RT, psych nurse, social organization professor, summer child caregiver, teacher, collection officer, case checker)? Give summary @ -Discussed with Dr. choudhary of orthopedics who was in agreement with the plan for admission and MRI tomorrow. Was smoking cessation discussed for >3mins.? @ -No Was critical care preformed (if so, how long)? @ -No Were there social determinants of health that impacted care today? How? (Homelessness, low income, unemployed, alcoholism, drug addiction, transportation, low edu. Level, literacy, decrease access to med. care, alf, rehab)? @ -No Was there de-escalation of care discussed even if they declined (Discuss DNR or withdrawal of care, Hospice)? DNR status @ -No What co-morbidities impacted this encounter? (DM, HTN, Smoking, COPD, CAD, Ca ncer, CVA, ARF, Chemo, Hep., AIDS, mental health diagnosis, sleep apnea, morbid obesity)? @ -None Was patient admitted / discharged? Hospital course, mention meds given and route, prescriptions, significant lab abnormalities, going to OR and other pertinent info. @ -Based on patient's presentation and physical exam, I'm concerned for possib le pelvis or lumbar spine injury with possible cauda equina syndrome as well. We will obtain CT lumbar spine and pelvis. Basic labs also obtained. Patiently administered IV steroids, pain medication, fluids. She is also given antiemetics. Patient was in agreement this plan. Vital signs within acceptable limits. Imaging shows possible disc herniation at L4-L5 but no other findings. Patient' s labs within acceptable limits. I discussed results with the patient. I called orthopedic spine wafer fabrication operator Dr. Choudhary was in agreement with plan for admission for MRI. We will continue IV steroids every 8 hours. Pain control as needed. He was in agreement with the plan. I discussed this with the patient was also in agreement with the plan. Undiagnosed new problem with uncertain prognosis? @ -No Drug Therapy requiring intensive monitoring for toxicity (Heparin, Nitro, Insulin, Cardizem)? @ -No Were any procedures done? @ -No Diagnosis/symptom? @ -Lumbar spine injury, lumbar disc herniation, concern for cauda equina syndrome Acute, or Chronic, or Acute on Chronic? @ -Acute Uncomplicated (without systemic symptoms) or Complicated (systemic symptoms)? @ -Complicated Side effects of treatment? @ -No Exacerbation, Progression, or Severe Exacerbation? @ -No Poses a threat to life or bodily function? How? (Chest pain, [place], [place], pneumonia, PE, COPD, DKA, ARF, appy, cholecystitis, CVA, Diverticulitis, Homicidal, Suicidal, threat to staff... and all critical care pts) @ -Possibly, yes - Lab Data Result diagrams: 08/15/23 17:46 08/15/23 17:46 Lab Results 08/15/23 08/15/23 Range/Units 17:46 17:46 WBC 8.4 (3.8-10.6) k/uL RBC 4.43 (3.80-5.40) m/uL Hgb 13.4 (11.4-16.0) gm/dL Hct 39.2 (34.0-46.0) % MCV 88.5 (80.0-100.0) fL MCH 30.2 (25.0-35.0) pg MCHC 34.1 (31.0-37.0) g/dL RDW 13.0 (11.5-15.5) % Plt Count 326 (150-450) k/uL MPV 7.5 Neutrophils % 72 % Lymphocytes % 20 % Monocytes % 4 % Eosinophils % 2 % Basophils % 0 % Neutrophils # 6.0 (1.3-7.7) k/uL Lymphocytes # 1.7 (1.0-4.8) k/uL Monocytes # 0.3 (0-1.0) k/uL Eosinophils # 0.2 (0-0.7) k/uL Basophils # 0.0 (0-0.2) k/uL Sodium 137 (137-145) mmol/L Potassium 4.5 (3.5-5.1) mmol/L Chloride 107 (98-107) mmol/L Carbon Dioxide 19 L (22-30) mmol/L Anion Gap 11 mmol/L BUN 14 (7-17) mg/dL Creatinine 0.52 (0.52-1.04) mg/dL Est GFR (CKD-EPI)AfAm >90 (>60 ml/min/1.73 sqM) Est GFR (CKD-EPI)NonAf >90 (>60 ml/min/1.73 sqM) Glucose 75 (74-99) mg/dL Calcium 9.3 (8.4-10.2) mg/dL Disposition Clinical Impression: Back pain, Lumbar disc herniation Narrative: concern for cauda equina syndrome Disposition: ADMITTED IP TO THIS HOSP Condition: Stable Time of Disposition: 19:10
[2023-08-15] MEDS ORDERED: HYDROmorphone 0.5 MG/0.5 ML SYRINGE IVP STA (19:45)
[2023-08-15] MEDS ORDERED: NALOXONE 0.4 MG/ML 1 ML VIAL IV PRN (19:46)
[2023-08-15] MEDS ORDERED: ONDANSETRON 4 MG/2 ML VIAL IVP PRN (19:46)
[2023-08-15] MEDS ORDERED: IBUPROFEN 400 MG TAB PO PRN (19:46)
[2023-08-15 20:19] VITALS: RESP 16
[2023-08-15] MEDS ORDERED: ALBUTEROL NEBULIZED 2.5 MG/3 ML INHALATION PRN (20:59)
[2023-08-15] MEDS ORDERED: MELATONIN 5 MG TABLET PO PRN (20:59)
[2023-08-15 22:09] VITALS: TEMP 98.2
[2023-08-15] MEDS: DEXAMETHASONE SOD PHOSPHATE 10 MG/ML 1 ML VIAL IVP SCH (23:12)
[2023-08-15] MEDS: MORPHINE SULFATE 4 MG/ML SYRINGE IV PRN (23:13)
[2023-08-16] MEDS: MORPHINE SULFATE 4 MG/ML SYRINGE IV PRN ×2 (03:36→07:59)
[2023-08-16] MEDS: DEXAMETHASONE SOD PHOSPHATE 10 MG/ML 1 ML VIAL IVP SCH (07:59)
[2023-08-16 08:12] VITALS: BP 116/72; PULSE 74
[2023-08-16 08:22] LABS: Basophils # (A) 0.01 X 10*3/uL (0.00-0.10); Basophils % (A) 0.1 %; Eosinophils # (A) 0 X 10*3/uL (0.04-0.35); Eosinophils % (A) 0 %; HGB 12.7 d/dL (12.0-15.0); Lymphocytes # (A) 0.65 X 10*3/uL (0.90-5.00); Lymphocytes % (A) 6.9 %; MCH 28.3 pg (27.0-32.0); MCHC 31.8 d/dL (32.0-37.0); MCV 89.3 FL (80.0-97.0); Mean Platelet Volume 10.2 FL (9.5-12.2); Monocytes # (A) 0.03 X 10*3/uL (0.20-1.00); Monocytes % (A) 0.3 %; NRBC Per 100 WBC 0 X 10*3/uL (0.00-0.01); Neutrophils # (A) 8.68 X 10*3/uL (1.80-7.70); Neutrophils % (A) 92.4 %; Platelet Count 340 X 10*3/uL (140-440); RBC 4.48 X 10*6/uL (4.10-5.20); RDW 13.1 % (11.5-14.5)
[2023-08-16 08:40] LABS: Blood Urea Nitrogen 8.4 mg/dL (9.0-27.0); Calcium 9.2 mg/dL (8.7-10.3); Chloride 104 mmol/L (96-109); Glucose 150 mg/dL (70-110); Potassium 4.5 mmol/L (3.5-5.5); Sodium 136 mmol/L (135-145)
[2023-08-16] MEDS ORDERED: diazePAM 5 MG TAB PO PRN (09:24)
[2023-08-16] MEDS ORDERED: HYDROmorphone 1 MG/ML 1 ML SYRINGE IVP PRN (09:25)
[2023-08-16] MEDS ORDERED: CYCLOBENZAPRINE 10 MG TAB PO PRN (09:26)
--- NOTE | 2023-08-16 11:00 | MR ---
EXAMINATION TYPE: MR lumbar spine wo con DATE OF EXAM: 08/16/2023 10:40 AM CLINICAL INDICATION:Female, 27 years old with history of eval for cauda equina syndrome; [facility], COMPARISON: None TECHNIQUE: Multi planar, multi sequence imaging was performed utilizing: T1-weighted, T2-weighted, a nd turbo inversion recovery imaging of the lumbar spine. IV Contrast: cc . (None if empty) FINDINGS: Alignment: The lumbar vertebral bodies have preserved heights and alignment. Cord: The conus medullaris and the distal spinal cord appear unremarkable with regards to their signa l intensity and morphology. Bones/Discs: Minimal degeneration changes throughout the spine. There is mild bony edema involving th e superior endplate of L5 around what is thought to be a Schmorl's node. T12-L1: No evidence of significant spinal canal stenosis or neural foraminal stenosis. L1-L2: No evidence of significant spinal canal stenosis or neural foraminal stenosis. L2-L3: No evidence of significant spinal canal stenosis or neural foraminal stenosis. L3-L4: No evidence of significant spinal canal stenosis or neural foraminal stenosis. L4-L5: Annular fissure posteriorly with possible disc material extruded inferiorly up to 4 mm and sup eriorly up to 5 in the epidural space. No significant spinal canal or neural foraminal stenosis. L5-S1: The disc is rounded posterior morphology without significant spinal canal stenosis. Facet join t arthropathy with mild bilateral neural foraminal stenosis. No significant spinal canal or neural foraminal stenosis in the remainder of the visualized levels. Other findings: None. IMPRESSION: 1. Suspected acute Schmorl's node of the L5 superior endplate with some bony edema. 2. L4-L5 posterior annular fissure with what is thought to be minimal extrusion of disc material into the epidural space 5 mm superiorly and 4 mm inferiorly. No significant spinal canal or neural forami nal stenosis. 3. Mild degeneration changes no evidence for significant spinal canal or neural foraminal stenosis.
--- NOTE | 2023-08-16 12:44 | P.HPOR ---
History of Present Illness H&P Date: 08/16/23 Chief Complaint: LBP and right lower extremity radiculopathy with urinary in continence Patient is a pleasant 27 showed female who is seen and examined at bedside for further evaluation of her lumbar spine. Patient states she sustained a fall 5 days ago with increased low back pain with pain radiating towards her right hip and down the right lower extremity. She has a numbness over her right thigh with a burning sensation in her right calf. She does admit to some lumbar pain with pain over the paraspinal muscles no significant on the right. She states she has had some mild urinary incontinence with some liquid leakage from the rectum. She does have a history of previous surgical intervention at her right hip due to labral tear and spurring performed on 10/31/[address] Florian. She states she does have fibromyalgia. She is planning for further evaluation with rheumatology. She is also scheduled to continue following with her primary care provider. During her admission CT imaging was performed which showed possible disc protrusion at L4-5. MRI imaging was ordered of her lumbar spine but was not performed at this morning. Past Medical History Past Medical History: Fibromyalgia, GERD/Reflux, Neurologic Disorder Additional Past Medical History / Comment(s): ABD PAIN, occular MIGRAINES, IBS, HIATAL HERNIA, SCLEROSIS RT SI JOINT, HX HEMORRHOIDS, hx. 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 right hip for labral tear, bone spurs Past Anesthesia/Blood Transfusion Reactions: Motion Sickness Additional Past Anesthesia/Blood Transfusion Reaction / Comment(s): has woke up during surgery before & wasn't able to communicate & tell people she was awake, very anxious about this Past Psychological History: Anxiety, Bipolar, Depression Smoking Status: Current every day smoker Past Alcohol Use History: Occasional Additional Past Alcohol Use History / Comment(s): STARTED SMOKING AT AGE 16. SMOKES 1 CIGARETTE DAILY, QUIT SMOKING MARCH 2021 but started up again, 1/2ppd Past Drug Use History: None Reported Additional Drug Use History / Comment(s): . - Past Family History Mother Family Medical History: Deep Vein Thrombosis (DVT) Medications and Allergies Home Medications Medication Instructions Recorded Confirmed Type Acetaminophen [Tylenol Extra 1,000 mg PO Q8H PRN 08/15/23 08/15/23 History Strength] Albuterol Sulfate [Albuterol 1 puff PO RT-Q4H PRN 08/15/23 08/15/23 History Sulfate Hfa] Ibuprofen [Motrin] 800 mg PO TID PRN 08/15/23 08/15/23 History Lisdexamfetamine Dimesylate 70 mg PO DAILY 08/15/23 08/15/23 History [Vyvanse] Melatonin 10 mg PO HS PRN 08/15/23 08/15/23 History Nicotine 14Mg/24Hr Patch [Habitrol 1 patch TRANSDERM DAILY 08/15/23 08/15/23 History 14Mg/24Hr Patch] Allergies Allergy/AdvReac Type Severity Reaction Status Date / Time amoxicillin AdvReac Diarrhea Verified 08/15/23 19:45 Penicillins AdvReac Abdominal Verified 08/15/23 19:45 Pain, Diarrhea, Nausea tuberculin,PPD,multi-puncture AdvReac rash,excessive Verified 08/15/23 19:45 swelling Physical Examination Physical exam: Patient is awake, alert, and oriented 3 Vital signs stable Good chest excursion with deep inspiration and expiration Abdomen soft nontender Examination of lumbar spine reveals skin is intact with no abrasions, lacerations, or bruises; no erythema, purulence or signs of infection Mild pain with palpation of the right lumbar paraspinal muscles Dorsiflexion, plantarflexion, and extensor hallucis longus positive sustained bilaterally Lower extremity strength 5/5 bilaterally She has good range of motion of her bilateral lower extremities independently Patellar reflex 2+ bilaterally and Achilles reflexes 2+ bilaterally No lower extremity hyperreflexia bilaterally No ankle clonus No signs or symptoms of DVT; no calf pain No pain with internal and external rotation of the hips bilaterally Neurovascularly intact Results Pertinent studies: CT of the lumbar spine taken on 08/15/2023: L4-5 disc protrusion without significant stenosis; no evidence of vertebral body compression fracture CT of the pelvis taken on 08/15/2023: No evidence of fracture; no evidence of process within the pelvis to explain patient's symptoms - Labs Labs: Abnormal Lab Results - Last 24 Hours (Table) 08/15/23 08/16/23 08/16/23 Range/Units 17:46 05:36 05:36 MCHC 31.8 L (32.0-37.0) d/dL Neutrophils # 8.68 H (1.80-7.70) X 10*3/uL Lymphocytes # 0.65 L (0.90-5.00) X 10*3/uL Monocytes # 0.03 L (0.20-1.00) X 10*3/uL Eosinophils # 0 L (0.04-0.35) X 10*3/uL Carbon Dioxide 19 L (22-30) mmol/L BUN 8.4 L (9.0-27.0) mg/dL Creatinine 0.5 L (0.6-1.5) mg/dL Glucose 150 H (70-110) mg/dL H & H 08/15/23 08/16/23 Range/Units 17:46 05:36 Hgb 13.4 12.7 (11.4-16.0) gm/dL Hct 39.2 40.0 (34.0-46.0) % Result Diagrams: 08/16/23 05:36 08/16/23 05:36 Assessment and Plan Assessment: Assessment: L4-5 disc protrusion Right lower extremity radiculopathy Lumbar pain Lumbar paraspinal pain History of surgical intervention at the right hip due to labral tear and spurring Mild urinary incontinence Reported liquid bowel leakage (1) Low back pain Current Visit: Yes Status: Acute Code(s): M54.50 - LOW BACK PAIN, UNSPE CIFIED SNOMED Code(s): 350275028 (2) Lumbar paraspinal muscle spasm Current Visit: Yes Status: Acute Code(s): M62.830 - MUSCLE SPASM OF BACK SNOMED Code(s): 19110190210175822 (3) Lumbar back pain with radiculopathy affecting right lower extremity Current Visit: Yes Status: Acute Code(s): M54.16 - RADICULOPATHY, LUMBAR REGION SNOMED Code(s): 267271503 (4) Urinary incontinence Current Visit: Yes Status: Acute Code(s): R32 - UNSPECIFIED URINARY INCONTINENCE SNOMED Code(s): 524431939 (5) Bulging lumbar disc Current Visit: Yes Status: Acute Code(s): M51.36 - OTHER INTERVERTEBRAL DISC DEGENERATION, LUMBAR REGION SNOMED Code(s): 699963075 Plan: Plan: 1. Patient has been experiencing increased low back pain and spasm with right lower extremity radiculopathy after sustaining a fall 5 days ago. She also states she has had some urinary incontinence with bowel leakage. CT imaging of the lumbar spine shows evidence of L4 to 5 disc protrusion. Currently, we will plan to obtain MRI imaging of the lumbar spine for further evaluation. Following completion of this MRI we will review this imaging and discussed these results with her. She has had some difficulty with pain control with morphine. She does not tolerate oral narcotics easily. We will plan to discontinue morphine and prescribed IV Dilaudid 1 mg every 4 hours as needed for pain. We are not plan to prescribe narcotic medication the time of discharge. Time with Patient: Greater than 30 (Including obtaining history, physical ex amination, reviewing of imaging, and dictation.)
--- NOTE | 2023-08-16 12:47 | P.DS ---
Providers Date of admission: 08/15/23 19:46 Expected date of discharge: 08/16/23 Attending physician: Hector Choudhary Primary care physician: Jaswant Muñoz - Discharge Diagnosis(es) (1) Low back pain Current Visit: Yes Status: Acute (2) Lumbar paraspinal muscle spasm Current Visit: Yes Status: Acute (3) Lumbar back pain with radiculopathy affecting right lower extremity Current Visit: Yes Status: Acute (4) Urinary incontinence Current Visit: Yes Status: Acute (5) Bulging lumbar disc Current Visit: Yes Status: Acute Hospital Course: This is a pleasant 27-year-old female who presented with increased low back pain with pain radiating towards her right hip and down the right lower extremity that is post fall. She has a numbness over her right thigh with a burning sensation in her right calf. She does admit to some lumbar pain with pain over the paraspinal muscles no significant on the right. who failed outpatient conservative therapy. She was admitted for further treatment and evaluation. During her admission CT lumbar imaging and lumbar MRI imaging has been performed and reviewed by myself and Dr. Timbo Choudhary. Following completion of the lumbar MRI today, results have been discussed in detail with the patient. Patient does not have evidence of any significant herniated nucleus pulposus, spinal canal stenosis, or neural foraminal stenosis. We do not see any significant findings on her MRI imaging that correlate well with her symptoms. Her spine is well visualized from T10 extending to S1. She does not have good indications in which surgical intervention or specific treatment with pain management would provide significant improvement of her symptoms. We did discuss she does have some urinary incontinence which could be related to stress incontinence. We do not feel that her urinary incontinence is stemming specifically in relation to her neurological cause from her lumbar spine. Patient reports she has been able to urinate during her admission to the hospital without any significant difficulty. Patient states she did have some l iquid leak from her rectum but it is unlikely that this would be stemming specifically from her lumbar spine as we do not see indications of any significant canal compromise. Patient states after hearing the results of her lumbar MRI, that she is known have degenerative change at L4-5 and was told previously she had some degenerative change at this level. Patient states she wants to work through conservative treatment options and does not want treatment or evaluation with pain management. She does not wish for any surgical intervention at her lumbar spine. Patient is happy about her MRI results. Patient feels she is ready for discharge home today. She is scheduled to follow-up with her primary care provider. She admits to fibromyalgia and states she was plan to schedule evaluation with rheumatology. She will plan to schedule that appointment today. Patient currently denies any nausea, vomiting, fever, or chills. Pertinent studies: MRI of the lumbar spine taken on 08/16/2023: L4-5 annulus issue posteriorly with possible disc material extruded without evidence of significant spinal stenosis or neuroforaminal stenosis; L5 Schmorl's node; minimal degenerative change throughout the lumbar spine; no evidence of vertebral body compression fracture; spine as visualized from T10-S1 without evidence of significant herniated nucleus pulposus, canal stenosis, or foraminal stenosis Physical exam: Patient is awake, alert, and oriented 3 Vital signs stable Good chest excursion with deep inspiration and expiration Abdomen soft nontender Examination of lumbar spine reveals skin is intact with no abrasions, lacerations, or bruises; no erythema, purulence or signs of infection Mild pain with palpation of the right lumbar paraspinal muscles Dorsiflexion, plantarflexion, and extensor hallucis longus positive sustained bilaterally Lower extremity strength 5/5 bilaterally She has good range of motion of her bilateral lower extremities independently Patellar reflex 2+ bilaterally and Achilles reflexes 2+ bilaterally No lower extremity hyperreflexia bilaterally No ankle clonus No signs or symptoms of DVT; no calf pain No pain with internal and external rotation of the hips bilaterally Neurovascularly intact Patient Condition at Discharge: Stable Plan - Discharge Summary Discharge Rx Participant: No New Discharge Prescriptions: No Action Nicotine 14Mg/24Hr Patch [Habitrol 14Mg/24Hr Patch] 1 patch TRANSDERM DAILY Ibuprofen [Motrin] 800 mg PO TID PRN PRN Reason: Pain Albuterol Sulfate [Albuterol Sulfate Hfa] 1 puff PO RT-Q4H PRN PRN Reason: Shortness Of Breath Acetaminophen [Tylenol Extra Strength] 1,000 mg PO Q8H PRN PRN Reason: Fever And/ Or Pain Lisdexamfetamine Dimesylate [Vyvanse] 70 mg PO DAILY Melatonin 10 mg PO HS PRN PRN Reason: Insomnia Discharge Medication List Acetaminophen [Tylenol Extra Strength] 1,000 mg PO Q8H PRN 08/15/23 [History] Albuterol Sulfate [Albuterol Sulfate Hfa] 1 puff PO RT-Q4H PRN 08/15/23 [History] Ibuprofen [Motrin] 800 mg PO TID PRN 08/15/23 [History] Lisdexamfetamine Dimesylate [Vyvanse] 70 mg PO DAILY 08/15/23 [History] Melatonin 10 mg PO HS PRN 08/15/23 [History] Nicotine 14Mg/24Hr Patch [Habitrol 14Mg/24Hr Patch] 1 patch TRANSDERM DAILY 08/15/23 [History] Follow up Appointment(s)/Referral(s): Jaswant Muñoz MD [Primary Care Provider] - 1-2 days Jose Irwin PAC [PHYSICIAN TELESALES ADVISOR] - As Needed (Patient may follow-up with Jose Irwin PA-C or Dr. Timbo Choudhary at [facility] on an as-needed basis following discharge. ) Activity/Diet/Wound Care/Special Instructions: 1. Patient should plan to continue following with her primary care provider as scheduled 2. Patient should plan to schedule further evaluation with rheumatology Discharge Disposition: HOME SELF-CARE
== END 2023-08-16 13:47 | disposition home or self-care (01) ==
LOC: EC 17:18 → 6NMEDSUR 19:46
PROVIDERS: ADMIT Orthopaedic Surgery Orthopaedic Surgery of the Spine; ATTEND Orthopaedic Surgery Orthopaedic Surgery of the Spine
DX: M51.16 Intervertebral disc disorders with radiculopathy, lumbar region (principal); M62.830 Muscle spasm of back; R32 Unspecified urinary incontinence; M79.7 Fibromyalgia; K21.9 Gastro-esophageal reflux disease without esophagitis; F41.9 Anxiety disorder, unspecified; F31.9 Bipolar disorder, unspecified; F17.210 Nicotine dependence, cigarettes, uncomplicated; Z79.899 Other long term (current) drug therapy; Z88.0 Allergy status to penicillin
CPT/HCPCS: 96376 ×2; 96374; 96375; 99285; 36415; 80048 ×2; 85025 ×2; 72192; 72131; 72148; G0378 ×2; J2270 ×2; J1100 ×2; J2405 ×2; J1170 ×2

== ENCOUNTER → 2023-10-18 | Outpatient (CLI) | payer OTHER ==
--- NOTE | 2023-10-20 22:25 | MR ---
EXAMINATION TYPE: MR sacroiliac joints wo con DATE OF EXAM: 10/18/2023 8:02 PM CLINICAL INDICATION:Female, 28 years old with history of R76.8; Widespread pain getting worse COMPARISON: 08/16/2023. TECHNIQUE: Triplane multisequence imaging was performed of the pelvis. IV Contrast: None FINDINGS: Reproductive: Measures portions of the uterus within normal limits. Endometrium is within normal limi ts. There is multiple bilateral ovarian follicles. Bladder: Unremarkable. Bowel: Unremarkable as visualized. Peritoneum: A small amount of free fluid in the pelvis. Lymph nodes: No evidence of adenopathy. Vasculature: Unremarkable. Musculoskeletal: There is high-grade inversion recovery signal within the L5 vertebrae remainder of t he osseous structures have normal compression recovery signal as well as T2 and T1 signal. Mild osteo phyte formation of the sacroiliac joints. Abdominal wall/soft tissues: Unremarkable. IMPRESSION: 1. Mild sacroiliac joint degeneration. 2. Some bony edema at the superior endplate of L5 vertebrae. 3. Multiple bilateral ovarian follicles.
== END | disposition home or self-care (01) ==
LOC: RADMRIMAIN 18:58
PROVIDERS: ATTEND Internal Medicine Rheumatology
DX: R76.8 Other specified abnormal immunological findings in serum (principal); M53.3 Sacrococcygeal disorders, not elsewhere classified; R60.0 Localized edema
CPT/HCPCS: 72195